=== PATIENT | male | born 1940 | race Caucasian/White ===

== ENCOUNTER 2019-05-05 06:16 | Day surgery (SDC) | payer MEDICARE, BC ==
[~2019-05-05 06:16] MED LIST: Lactated Ringers 1,000 ML IV SCH; Sodium Chloride 0.9% 10 ML Syringe FLUSH PRN; ceFAZolin 1 GM Vial IVPUSH SCH; ceFAZolin 1 GM in Sodium Chloride 0.9% 100 ML IV SCH
[2019-05-05] MEDS ORDERED: Acetaminophen 1,000 MG in Premix Bag 1 BAG IV ONE (07:27)
[2019-05-05] MEDS ORDERED: Bupivacaine 0.25%/EPINEPHrine 1:200,000 30 ML SDV ONE (07:36)
[2019-05-05] MEDS ORDERED: Ketamine 200 MG/20 ML MDV ONE (07:53)
[2019-05-05] MEDS ORDERED: fentaNYL 100 MCG/2 ML SDV ONE (07:53)
[2019-05-05] MEDS ORDERED: Propofol 200 MG/20 ML SDV ONE (07:53)
[2019-05-05] MEDS ORDERED: ceFAZolin 1 GM Vial ONE (08:05)
[2019-05-05] MEDS ORDERED: Ketorolac 30 MG/ML SDV ONE (08:09)
[2019-05-05] MEDS ORDERED: Bupivacaine 0.25%/EPINEPHrine 1:200,000 30 ML SDV INJECT ONE ×2 (08:11)
--- NOTE | 2019-05-05 09:48 | OR ---
PREOPERATIVE DIAGNOSIS: Recurrent left inguinal hernia. POSTOPERATIVE DIAGNOSIS: Recurrent direct left inguinal hernia. PROCEDURE PROPOSED AND PROCEDURE DONE: Left direct inguinal hernia repair with mesh. PROMOTIONS ASSISTANT: Brunilda. INDICATION: This is an elderly gentleman with a history of previous bilateral inguinal hernia repairs quite a few years ago, and he has developed a recurrence on the left side that is quite symptomatic to him and it is felt that this should be repaired. It was felt that this could be safely done under MAC anesthesia with local anesthesia. TECHNIQUE: The patient was brought to the operative suite, placed in the supine position. He had been previously trimmed. He was given some MAC anesthesia with propofol. The left groin area was then sterilely prepped and draped, and the skin and subcutaneous tissue was then localized with 0.25% Marcaine with epinephrine. An oblique incision was made above his previous scar to avoid going through a lot of scar tissue. This dissection was carried down through the subcutaneous tissue to the external oblique fascia. More anesthesia was used as needed throughout the operation. The external oblique fascia was opened. The cord was laying there, and I freed that up and passed a Boyd drain around that for traction. The patient had an obvious direct inguinal hernia through the inguinal floor and appeared to be predominantly a preperitoneal fat. There was no evidence of any bowel in the herniated tissue, which was incarcerated. I freed up the tissue circumferentially at the level of the fascia. I was unable to get the tissue reduced. He had a fascial defect that was only about 1.2 cm in size circumferentially. I placed a medium size plug of mesh into the defect and anchored it circumferentially with interrupted 0 Ethibond suture. To avoid having to dissect through other scar tissue, just to place a flat piece of mesh, I felt that at his age he was not very active, that we do not need to put a flat piece of mesh in. Therefore, placed the cord back in its normal position and the external oblique fascia was closed over the cord with a running 3-0 Vicryl. The subcutaneous tissue was then reapproximated with interrupted 3-0 Vicryl and the skin closed with a subcuticular stitch of 4- 0 Vicryl. A sterile dressing was applied. There was essentially no blood loss. He tolerated the procedure well and was taken back to [facility] in good condition. SCM: 05/05/2019 08:47:00 MODL: 05/05/2019 09:17:57 /[id number]
[2019-05-05 11:07] VITALS: BP 99/62; PULSE 77
== END 2019-05-05 11:42 | disposition home or self-care (01) ==
LOC: VM.SDS 06:16
PROVIDERS: ATTEND Surgery
DX: K40.91 Unilateral inguinal hernia, without obstruction or gangrene, recurrent (principal); I25.10 Atherosclerotic heart disease of native coronary artery without angina pectoris; I25.83 Coronary atherosclerosis due to lipid rich plaque; I11.0 Hypertensive heart disease with heart failure; I50.32 Chronic diastolic (congestive) heart failure; I48.1 Persistent atrial fibrillation; I25.5 Ischemic cardiomyopathy; I73.9 Peripheral vascular disease, unspecified; E78.00 Pure hypercholesterolemia, unspecified; K21.9 Gastro-esophageal reflux disease without esophagitis; Z91.19 Patient's noncompliance with other medical treatment and regimen; Z87.891 Personal history of nicotine dependence; Z79.01 Long term (current) use of anticoagulants; Z79.52 Long term (current) use of systemic steroids; Z79.82 Long term (current) use of aspirin; Z79.899 Other long term (current) drug therapy
CPT/HCPCS: 00830; 36415; 49520; 85610; A4217; C1781; J0131; J0690; J2704; J3010; J7120; J1885

== ENCOUNTER 2022-03-31 04:00 | Emergency (ER) | payer MEDICARE, BC ==
[2022-03-31 04:26] VITALS: PULSE 110
[2022-03-31 05:40] VITALS: BP 138/94
== END 2022-03-31 05:24 | disposition home or self-care (01) ==
LOC: VM.ED 04:00
DX: R33.9 Retention of urine, unspecified (principal); I25.10 Atherosclerotic heart disease of native coronary artery without angina pectoris; K21.9 Gastro-esophageal reflux disease without esophagitis; Z79.899 Other long term (current) drug therapy
CPT/HCPCS: 51702; 99283-25; 99284

== ENCOUNTER 2022-04-03 12:09 | Emergency (ER) | payer MEDICARE, BC ==
[2022-04-03 13:26] LABS: PTT,PARTIAL THROMBOPLSTIN TIME 31.2 SEC (20.5-30.9)
[2022-04-03 13:29] LABS: CHLORIDE,CL 103 mmol/L (98-107); SODIUM,NA 137 mmol/L (136-145)
[2022-04-03 14:00] LABS: ANION GAP 12.2 mmol/L (5-15); ESTIMATED GFR 85 mL/min (>=60)
[2022-04-03 14:58] VITALS: BP 93/47; PULSE 61
== END 2022-04-03 14:05 | disposition home or self-care (01) ==
LOC: VM.ED 12:09
DX: R33.9 Retention of urine, unspecified (principal); J44.9 Chronic obstructive pulmonary disease, unspecified; I11.0 Hypertensive heart disease with heart failure; I50.9 Heart failure, unspecified; I25.2 Old myocardial infarction; Z79.01 Long term (current) use of anticoagulants; Z79.82 Long term (current) use of aspirin; Z79.899 Other long term (current) drug therapy
CPT/HCPCS: 36415; 51702; 80053; 81001; 85025; 85610; 85730; 99283-25; 99284

== ENCOUNTER 2022-08-24 15:10 | Inpatient (IN) | payer MEDICARE, BC ==
[2022-08-24] MEDS ORDERED: HYDROmorphone 0.5 MG/0.5 ML Syringe IVPUSH ONE (18:05)
[2022-08-24] MEDS ORDERED: Acetaminophen 325 MG Tab PO PRN (18:21)
[2022-08-24] MEDS ORDERED: Ondansetron 4 MG Tab.DIS PO PRN (18:21)
[2022-08-24] MEDS ORDERED: Ondansetron 4 MG/2 ML SDV IV PRN (18:21)
[2022-08-24] MEDS: HYDROmorphone 0.5 MG/0.5 ML Syringe IVPUSH PRN (20:00)
[2022-08-25] MEDS: HYDROmorphone 0.5 MG/0.5 ML Syringe IVPUSH PRN ×5 (03:11→17:50)
[2022-08-25] MEDS ORDERED: Nitroglycerin 0.4 MG Tab.SL SL PRN (10:18)
[2022-08-25] MEDS ORDERED: Phytonadione 100 MCG Tab PO SCH (10:30)
[2022-08-25] MEDS: Carvedilol 12.5 MG Tab PO SCH ×2 (11:27→17:01)
[2022-08-25] MEDS: Finasteride 5 MG Tab PO SCH (11:28)
[2022-08-25] MEDS: Lisinopril 2.5 MG Tab PO SCH (11:28)
[2022-08-25] MEDS: Aspirin 81 MG Tab.EC PO SCH (11:30)
[2022-08-25] MEDS: Digoxin 125 MCG Tab PO SCH (11:30)
[2022-08-25 11:44] LABS: ANION GAP 10.1 mmol/L (5-15)
[2022-08-25] MEDS: Tamsulosin 0.4 MG Cap.ER PO SCH (16:55)
[2022-08-25] MEDS: Azithromycin 250 MG Tab PO SCH (17:51)
[2022-08-25] MEDS: cefTRIAXone 1 GM Vial IVPUSH SCH (17:52)
[2022-08-25] MEDS: atorvaSTATin 40 MG Tab PO SCH (20:23)
[2022-08-25] MEDS: HYDROmorphone 0.5 MG/0.5 ML Syringe IVPUSH SCH (20:25)
[2022-08-25] MEDS ORDERED: Warfarin 2.5 MG Tab PO ONE (21:00)
[2022-08-26] MEDS: Acetaminophen/HYDROcodone 325-5 MG Tab PO PRN ×3 (06:31→23:52)
[2022-08-26] MEDS: Carvedilol 12.5 MG Tab PO SCH ×2 (08:30→18:03)
[2022-08-26] MEDS: Lisinopril 2.5 MG Tab PO SCH (08:30)
[2022-08-26] MEDS: Azithromycin 250 MG Tab PO SCH (08:50)
[2022-08-26] MEDS: Digoxin 125 MCG Tab PO SCH (08:50)
[2022-08-26] MEDS: Finasteride 5 MG Tab PO SCH (08:51)
[2022-08-26] MEDS: Tamsulosin 0.4 MG Cap.ER PO SCH (08:51)
[2022-08-26] MEDS: Aspirin 81 MG Tab.EC PO SCH (08:51)
[2022-08-26] MEDS: HYDROmorphone 0.5 MG/0.5 ML Syringe IVPUSH SCH ×2 (08:57→20:01)
[2022-08-26] MEDS: cefTRIAXone 1 GM Vial IVPUSH SCH (08:59)
[2022-08-26] MEDS ORDERED: Magnesium Hydroxide 400 MG/5 ML Susp 30 ML Cup PO PRN (09:04)
[2022-08-26] MEDS: atorvaSTATin 40 MG Tab PO SCH (20:02)
[2022-08-26] MEDS: Warfarin 5 MG Tab PO SCH (20:02)
[2022-08-27] MEDS: Acetaminophen/HYDROcodone 325-5 MG Tab PO PRN ×3 (06:15→20:04)
[2022-08-27] MEDS ORDERED: Enoxaparin 40 MG/0.4 ML Syringe SUBCUT SCH (09:00)
[2022-08-27] MEDS: cefTRIAXone 1 GM Vial IVPUSH SCH (10:37)
[2022-08-27] MEDS: Tamsulosin 0.4 MG Cap.ER PO SCH ×2 (10:42→20:03)
[2022-08-27] MEDS: Azithromycin 250 MG Tab PO SCH (10:42)
[2022-08-27] MEDS: Digoxin 125 MCG Tab PO SCH (10:43)
[2022-08-27] MEDS: Lisinopril 2.5 MG Tab PO SCH (10:44)
[2022-08-27] MEDS: Aspirin 81 MG Tab.EC PO SCH (10:47)
[2022-08-27] MEDS: Finasteride 5 MG Tab PO SCH (10:47)
[2022-08-27] MEDS: Carvedilol 12.5 MG Tab PO SCH ×2 (10:47→20:03)
[2022-08-27] MEDS ORDERED: Albuterol/Ipratropium 3.0-0.5 MG/3 ML Neb Soln NEB PRN (13:50)
[2022-08-27] MEDS: Warfarin 5 MG Tab PO SCH (20:03)
[2022-08-27] MEDS: atorvaSTATin 40 MG Tab PO SCH (20:04)
[2022-08-28 07:31] LABS: ANION GAP 11.1 mmol/L (5-15)
[2022-08-28 08:49] VITALS: BP 109/58; PULSE 100
[2022-08-28] MEDS: Digoxin 125 MCG Tab PO SCH (08:54)
[2022-08-28] MEDS: Lisinopril 2.5 MG Tab PO SCH (08:54)
[2022-08-28] MEDS: Aspirin 81 MG Tab.EC PO SCH (08:54)
[2022-08-28] MEDS: Carvedilol 12.5 MG Tab PO SCH (08:55)
[2022-08-28] MEDS: Finasteride 5 MG Tab PO SCH (08:55)
[2022-08-28] MEDS: Tamsulosin 0.4 MG Cap.ER PO SCH (08:55)
[2022-08-28] MEDS: Azithromycin 250 MG Tab PO SCH (08:55)
[2022-08-28] MEDS ORDERED: Amoxicillin/Clavulanate K 875-125 MG Tab PO SCH (09:00)
[2022-08-28] MEDS ORDERED: Nicotine 14 MG/24 Hr Patch TRDERM SCH (13:00)
[2022-08-28] MEDS: Acetaminophen/HYDROcodone 325-5 MG Tab PO PRN (13:05)
[2022-08-28] MEDS ORDERED: Warfarin 2.5 MG Tab PO ONE (21:00)
== END 2022-08-28 13:15 | disposition swing bed (61) | DRG 535 ==
LOC: VM.ED 15:10 → VM.MS 17:43 → OBSVTOIN 08-25 13:09
PROVIDERS: ADMIT Physician Assistant Medical; ATTEND Internal Medicine
DX: S32.592A Other specified fracture of left pubis, initial encounter for closed fracture (principal); J18.9 Pneumonia, unspecified organism; J96.01 Acute respiratory failure with hypoxia; I48.0 Paroxysmal atrial fibrillation; C34.90 Malignant neoplasm of unspecified part of unspecified bronchus or lung; E87.1 Hypo-osmolality and hyponatremia; C34.91 Malignant neoplasm of unspecified part of right bronchus or lung; I48.20 Chronic atrial fibrillation, unspecified; I50.42 Chronic combined systolic (congestive) and diastolic (congestive) heart failure; I48.19 Other persistent atrial fibrillation; N40.1 Benign prostatic hyperplasia with lower urinary tract symptoms; R33.8 Other retention of urine; K59.03 Drug induced constipation; T40.2X5A Adverse effect of other opioids, initial encounter; F17.210 Nicotine dependence, cigarettes, uncomplicated; I50.22 Chronic systolic (congestive) heart failure; R33.9 Retention of urine, unspecified; K21.9 Gastro-esophageal reflux disease without esophagitis; I11.0 Hypertensive heart disease with heart failure; E78.00 Pure hypercholesterolemia, unspecified; J43.1 Panlobular emphysema; E78.5 Hyperlipidemia, unspecified; I25.10 Atherosclerotic heart disease of native coronary artery without angina pectoris; Z79.82 Long term (current) use of aspirin; Z79.899 Other long term (current) drug therapy; I25.2 Old myocardial infarction; Z79.01 Long term (current) use of anticoagulants; W01.0XXA Fall on same level from slipping, tripping and stumbling without subsequent striking against object, initial encounter
CPT/HCPCS: 36415; 51798; 71045; 72170; 80048; 80053; 81001; 85025; 85610; 86140; 87086; 94760; 95851-GO; 96374; 96376; 97110-GP; 97161-GP; 97165-GO; 97530-GO; 97530-GP; 97535-GO; 99285-25; A9270-GY; G0378; J0696; J1170; J1650

== ENCOUNTER 2022-08-28 10:47 | Inpatient (IN) | payer MEDICARE, BC ==
[2022-08-28] MEDS ORDERED: Nitroglycerin 0.4 MG Tab.SL SL PRN (12:21)
[2022-08-28] MEDS ORDERED: Ondansetron 4 MG Tab.DIS PO PRN (12:21)
[2022-08-28] MEDS ORDERED: Albuterol/Ipratropium 3.0-0.5 MG/3 ML Neb Soln NEB PRN (12:21)
[2022-08-28] MEDS ORDERED: Magnesium Hydroxide 400 MG/5 ML Susp 30 ML Cup PO PRN (12:21)
[2022-08-28] MEDS: Carvedilol 12.5 MG Tab PO SCH (18:42)
[2022-08-28] MEDS: Acetaminophen/HYDROcodone 325-5 MG Tab PO PRN (18:43)
[2022-08-28] MEDS: Tamsulosin 0.4 MG Cap.ER PO SCH (20:00)
[2022-08-28] MEDS: Amoxicillin/Clavulanate K 875-125 MG Tab PO SCH (20:00)
[2022-08-28] MEDS ORDERED: Warfarin 2.5 MG Tab PO ONE (20:00)
[2022-08-28] MEDS: atorvaSTATin 40 MG Tab PO SCH (20:00)
[2022-08-28] MEDS: Acetaminophen 325 MG Tab PO PRN (20:01)
[2022-08-29] MEDS: Acetaminophen 325 MG Tab PO PRN (08:24)
[2022-08-29] MEDS: Lisinopril 2.5 MG Tab PO SCH (08:25)
[2022-08-29] MEDS: Carvedilol 12.5 MG Tab PO SCH ×2 (08:26→17:37)
[2022-08-29] MEDS: Aspirin 81 MG Tab.EC PO SCH (08:26)
[2022-08-29] MEDS: Tamsulosin 0.4 MG Cap.ER PO SCH ×2 (08:26→20:01)
[2022-08-29] MEDS: Amoxicillin/Clavulanate K 875-125 MG Tab PO SCH ×2 (08:26→20:01)
[2022-08-29] MEDS: Digoxin 125 MCG Tab PO SCH (08:26)
[2022-08-29] MEDS: Finasteride 5 MG Tab PO SCH (08:27)
[2022-08-29] MEDS ORDERED: Azithromycin 250 MG Tab PO SCH (09:00)
[2022-08-29] MEDS: Acetaminophen/HYDROcodone 325-5 MG Tab PO PRN ×2 (15:03→23:42)
[2022-08-29] MEDS: Warfarin 5 MG Tab PO SCH (20:01)
[2022-08-29] MEDS: atorvaSTATin 40 MG Tab PO SCH (20:01)
[2022-08-30] MEDS: Lisinopril 2.5 MG Tab PO SCH (10:00)
[2022-08-30] MEDS: Carvedilol 12.5 MG Tab PO SCH ×2 (10:01→18:05)
[2022-08-30] MEDS: Digoxin 125 MCG Tab PO SCH (10:01)
[2022-08-30] MEDS: Finasteride 5 MG Tab PO SCH (10:01)
[2022-08-30] MEDS: Aspirin 81 MG Tab.EC PO SCH (10:01)
[2022-08-30] MEDS: Tamsulosin 0.4 MG Cap.ER PO SCH ×2 (10:02→20:17)
[2022-08-30] MEDS: Acetaminophen/HYDROcodone 325-5 MG Tab PO PRN (11:47)
[2022-08-30] MEDS: Nicotine 14 MG/24 Hr Patch TRDERM SCH (13:50)
[2022-08-30] MEDS: Warfarin 5 MG Tab PO SCH (20:17)
[2022-08-30] MEDS: atorvaSTATin 40 MG Tab PO SCH (20:17)
[2022-08-31 07:08] LABS: ANION GAP 10.2 mmol/L (5-15)
[2022-08-31] MEDS: Tamsulosin 0.4 MG Cap.ER PO SCH ×2 (08:23→20:07)
[2022-08-31] MEDS: Lisinopril 2.5 MG Tab PO SCH (08:23)
[2022-08-31] MEDS: Aspirin 81 MG Tab.EC PO SCH (08:23)
[2022-08-31] MEDS: Finasteride 5 MG Tab PO SCH (08:23)
[2022-08-31] MEDS: Digoxin 125 MCG Tab PO SCH (08:23)
[2022-08-31] MEDS: Carvedilol 12.5 MG Tab PO SCH ×2 (08:23→17:52)
[2022-08-31] MEDS: Nicotine 14 MG/24 Hr Patch TRDERM SCH (08:24)
[2022-08-31] MEDS ORDERED: Carvedilol 12.5 MG Tab PO SCH (09:00)
[2022-08-31] MEDS ORDERED: Carvedilol 6.25 MG Tab PO ONE ×2 (09:15→11:45)
[2022-08-31] MEDS ORDERED: Warfarin 2.5 MG Tab PO SCH (20:00)
[2022-08-31] MEDS: atorvaSTATin 40 MG Tab PO SCH (20:06)
[2022-09-01] MEDS: Finasteride 5 MG Tab PO SCH (08:37)
[2022-09-01] MEDS: Lisinopril 2.5 MG Tab PO SCH (08:38)
[2022-09-01] MEDS: Carvedilol 12.5 MG Tab PO SCH ×2 (08:39→17:48)
[2022-09-01] MEDS: Aspirin 81 MG Tab.EC PO SCH (08:40)
[2022-09-01] MEDS: Nicotine 14 MG/24 Hr Patch TRDERM SCH (08:40)
[2022-09-01] MEDS: Tamsulosin 0.4 MG Cap.ER PO SCH ×2 (08:40→20:04)
[2022-09-01] MEDS: Digoxin 125 MCG Tab PO SCH (08:40)
[2022-09-01] MEDS: Acetaminophen/HYDROcodone 325-5 MG Tab PO PRN ×2 (15:21→23:14)
[2022-09-01] MEDS: atorvaSTATin 40 MG Tab PO SCH (20:04)
[2022-09-01] MEDS: Warfarin 5 MG Tab PO SCH (20:04)
[2022-09-01] MEDS: Warfarin 2.5 MG Tab PO SCH (20:09)
[2022-09-02] MEDS: Carvedilol 12.5 MG Tab PO SCH ×2 (09:38→17:55)
[2022-09-02] MEDS: Finasteride 5 MG Tab PO SCH (09:39)
[2022-09-02] MEDS: Aspirin 81 MG Tab.EC PO SCH (09:39)
[2022-09-02] MEDS: Lisinopril 2.5 MG Tab PO SCH (09:39)
[2022-09-02] MEDS: Digoxin 125 MCG Tab PO SCH (09:39)
[2022-09-02] MEDS: Tamsulosin 0.4 MG Cap.ER PO SCH ×2 (09:39→20:12)
[2022-09-02] MEDS: Nicotine 14 MG/24 Hr Patch TRDERM SCH (09:42)
[2022-09-02] MEDS: Acetaminophen/HYDROcodone 325-5 MG Tab PO PRN ×3 (09:44→20:11)
[2022-09-02] MEDS: Warfarin 5 MG Tab PO SCH (20:12)
[2022-09-02] MEDS: atorvaSTATin 40 MG Tab PO SCH (20:12)
[2022-09-03] MEDS: Finasteride 5 MG Tab PO SCH (08:35)
[2022-09-03] MEDS: Lisinopril 2.5 MG Tab PO SCH (08:35)
[2022-09-03] MEDS: Aspirin 81 MG Tab.EC PO SCH (08:35)
[2022-09-03] MEDS: Carvedilol 12.5 MG Tab PO SCH ×2 (08:35→18:33)
[2022-09-03] MEDS: Tamsulosin 0.4 MG Cap.ER PO SCH ×2 (08:35→20:49)
[2022-09-03] MEDS: Digoxin 125 MCG Tab PO SCH (08:35)
[2022-09-03] MEDS: Acetaminophen/HYDROcodone 325-5 MG Tab PO PRN ×2 (08:36→18:30)
[2022-09-03] MEDS: Nicotine 14 MG/24 Hr Patch TRDERM SCH (08:38)
[2022-09-03] MEDS: atorvaSTATin 40 MG Tab PO SCH (20:48)
[2022-09-03] MEDS: Warfarin 5 MG Tab PO SCH (20:48)
[2022-09-04] MEDS: Nicotine 14 MG/24 Hr Patch TRDERM SCH (08:13)
[2022-09-04] MEDS: Aspirin 81 MG Tab.EC PO SCH (08:17)
[2022-09-04] MEDS: Lisinopril 2.5 MG Tab PO SCH (08:17)
[2022-09-04] MEDS: Digoxin 125 MCG Tab PO SCH (08:17)
[2022-09-04] MEDS: Carvedilol 12.5 MG Tab PO SCH ×2 (08:18→18:25)
[2022-09-04] MEDS: Tamsulosin 0.4 MG Cap.ER PO SCH ×2 (08:18→20:09)
[2022-09-04] MEDS: Finasteride 5 MG Tab PO SCH (08:18)
[2022-09-04] MEDS: Acetaminophen/HYDROcodone 325-5 MG Tab PO PRN (08:18)
[2022-09-04] MEDS: Phytonadione 100 MCG Tab PO SCH (08:30)
[2022-09-04] MEDS: Acetaminophen 325 MG Tab PO PRN (13:45)
[2022-09-04] MEDS: Warfarin 2.5 MG Tab PO SCH (20:09)
[2022-09-04] MEDS: atorvaSTATin 40 MG Tab PO SCH (20:09)
[2022-09-05] MEDS: Tamsulosin 0.4 MG Cap.ER PO SCH ×2 (08:30→20:16)
[2022-09-05] MEDS: Phytonadione 100 MCG Tab PO SCH (08:30)
[2022-09-05] MEDS: Finasteride 5 MG Tab PO SCH (08:30)
[2022-09-05] MEDS: Aspirin 81 MG Tab.EC PO SCH (08:30)
[2022-09-05] MEDS: Carvedilol 12.5 MG Tab PO SCH ×2 (08:31→17:20)
[2022-09-05] MEDS: Digoxin 125 MCG Tab PO SCH (08:31)
[2022-09-05] MEDS: Lisinopril 2.5 MG Tab PO SCH (08:31)
[2022-09-05] MEDS: Nicotine 14 MG/24 Hr Patch TRDERM SCH (08:31)
[2022-09-05] MEDS: Acetaminophen/HYDROcodone 325-5 MG Tab PO PRN (13:58)
[2022-09-05] MEDS: Warfarin 5 MG Tab PO SCH (20:15)
[2022-09-05] MEDS: atorvaSTATin 40 MG Tab PO SCH (20:16)
[2022-09-06] MEDS: Finasteride 5 MG Tab PO SCH (08:10)
[2022-09-06] MEDS: Carvedilol 12.5 MG Tab PO SCH ×2 (08:10→18:22)
[2022-09-06] MEDS: Phytonadione 100 MCG Tab PO SCH (08:10)
[2022-09-06] MEDS: Nicotine 14 MG/24 Hr Patch TRDERM SCH (08:10)
[2022-09-06] MEDS: Lisinopril 2.5 MG Tab PO SCH (08:11)
[2022-09-06] MEDS: Digoxin 125 MCG Tab PO SCH (08:11)
[2022-09-06] MEDS: Tamsulosin 0.4 MG Cap.ER PO SCH ×2 (08:11→20:24)
[2022-09-06] MEDS: Aspirin 81 MG Tab.EC PO SCH (08:11)
[2022-09-06] MEDS: Acetaminophen/HYDROcodone 325-5 MG Tab PO PRN ×2 (13:06→20:25)
[2022-09-06] MEDS: atorvaSTATin 40 MG Tab PO SCH (20:24)
[2022-09-06] MEDS: Warfarin 5 MG Tab PO SCH (20:25)
[2022-09-07 07:19] LABS: ANION GAP 11.1 mmol/L (5-15)
[2022-09-07] MEDS: Finasteride 5 MG Tab PO SCH (08:17)
[2022-09-07] MEDS: Phytonadione 100 MCG Tab PO SCH (08:17)
[2022-09-07] MEDS: Tamsulosin 0.4 MG Cap.ER PO SCH ×2 (08:18→20:20)
[2022-09-07] MEDS: Nicotine 14 MG/24 Hr Patch TRDERM SCH (08:18)
[2022-09-07] MEDS: Aspirin 81 MG Tab.EC PO SCH (08:18)
[2022-09-07] MEDS: Digoxin 125 MCG Tab PO SCH (08:56)
[2022-09-07] MEDS: Lisinopril 2.5 MG Tab PO SCH (08:56)
[2022-09-07] MEDS: Carvedilol 12.5 MG Tab PO SCH ×2 (08:57→18:19)
[2022-09-07] MEDS: Warfarin 5 MG Tab PO SCH (20:19)
[2022-09-07] MEDS: atorvaSTATin 40 MG Tab PO SCH (20:19)
[2022-09-07] MEDS: Acetaminophen 325 MG Tab PO PRN (20:25)
[2022-09-08] MEDS: Nicotine 14 MG/24 Hr Patch TRDERM SCH (08:29)
[2022-09-08] MEDS: Tamsulosin 0.4 MG Cap.ER PO SCH ×2 (08:29→21:34)
[2022-09-08] MEDS: Phytonadione 100 MCG Tab PO SCH (08:29)
[2022-09-08] MEDS: Aspirin 81 MG Tab.EC PO SCH (08:30)
[2022-09-08] MEDS: Lisinopril 2.5 MG Tab PO SCH (08:30)
[2022-09-08] MEDS: Finasteride 5 MG Tab PO SCH (08:30)
[2022-09-08] MEDS: Digoxin 125 MCG Tab PO SCH (08:30)
[2022-09-08] MEDS: Carvedilol 12.5 MG Tab PO SCH ×2 (08:30→17:59)
[2022-09-08] MEDS ORDERED: Warfarin 5 MG Tab PO SCH (20:00)
[2022-09-08] MEDS: Warfarin 5 MG Tab PO SCH (21:00)
[2022-09-08] MEDS: atorvaSTATin 40 MG Tab PO SCH (21:34)
[2022-09-09] MEDS: Lisinopril 2.5 MG Tab PO SCH (08:53)
[2022-09-09] MEDS: Digoxin 125 MCG Tab PO SCH (08:54)
[2022-09-09] MEDS: Phytonadione 100 MCG Tab PO SCH (08:54)
[2022-09-09] MEDS: Carvedilol 12.5 MG Tab PO SCH ×2 (08:54→17:59)
[2022-09-09] MEDS: Finasteride 5 MG Tab PO SCH (08:54)
[2022-09-09] MEDS: Aspirin 81 MG Tab.EC PO SCH (08:54)
[2022-09-09] MEDS: Tamsulosin 0.4 MG Cap.ER PO SCH ×2 (08:55→20:22)
[2022-09-09] MEDS: Nicotine 14 MG/24 Hr Patch TRDERM SCH (08:57)
[2022-09-09] MEDS: Acetaminophen 325 MG Tab PO PRN (18:03)
[2022-09-09] MEDS: atorvaSTATin 40 MG Tab PO SCH (20:22)
[2022-09-09] MEDS: Warfarin 5 MG Tab PO SCH (20:22)
[2022-09-10] MEDS: Acetaminophen 325 MG Tab PO PRN ×3 (03:16→21:22)
[2022-09-10] MEDS: Lisinopril 2.5 MG Tab PO SCH (10:07)
[2022-09-10] MEDS: Tamsulosin 0.4 MG Cap.ER PO SCH ×2 (10:07→20:01)
[2022-09-10] MEDS: Finasteride 5 MG Tab PO SCH (10:08)
[2022-09-10] MEDS: Carvedilol 12.5 MG Tab PO SCH ×2 (10:08→18:39)
[2022-09-10] MEDS: Phytonadione 100 MCG Tab PO SCH (10:08)
[2022-09-10] MEDS: Digoxin 125 MCG Tab PO SCH (10:08)
[2022-09-10] MEDS: Aspirin 81 MG Tab.EC PO SCH (10:08)
[2022-09-10] MEDS: Nicotine 14 MG/24 Hr Patch TRDERM SCH (10:09)
[2022-09-10] MEDS: atorvaSTATin 40 MG Tab PO SCH (20:01)
[2022-09-10] MEDS: Warfarin 5 MG Tab PO SCH (20:02)
[2022-09-11] MEDS: Aspirin 81 MG Tab.EC PO SCH (10:20)
[2022-09-11] MEDS: Carvedilol 12.5 MG Tab PO SCH ×2 (10:20→17:45)
[2022-09-11] MEDS: Digoxin 125 MCG Tab PO SCH (10:20)
[2022-09-11] MEDS: Tamsulosin 0.4 MG Cap.ER PO SCH ×2 (10:20→20:02)
[2022-09-11] MEDS: Phytonadione 100 MCG Tab PO SCH (10:20)
[2022-09-11] MEDS: Lisinopril 2.5 MG Tab PO SCH (10:21)
[2022-09-11] MEDS: Nicotine 14 MG/24 Hr Patch TRDERM SCH (10:21)
[2022-09-11] MEDS: Finasteride 5 MG Tab PO SCH (10:21)
[2022-09-11] MEDS: Warfarin 2.5 MG Tab PO SCH (20:02)
[2022-09-11] MEDS: atorvaSTATin 40 MG Tab PO SCH (20:02)
[2022-09-12] MEDS: Nicotine 14 MG/24 Hr Patch TRDERM SCH (10:24)
[2022-09-12] MEDS: Lisinopril 2.5 MG Tab PO SCH (10:28)
[2022-09-12] MEDS: Digoxin 125 MCG Tab PO SCH (10:28)
[2022-09-12] MEDS: Finasteride 5 MG Tab PO SCH (10:28)
[2022-09-12] MEDS: Tamsulosin 0.4 MG Cap.ER PO SCH ×2 (10:29→20:15)
[2022-09-12] MEDS: Phytonadione 100 MCG Tab PO SCH (10:29)
[2022-09-12] MEDS: Aspirin 81 MG Tab.EC PO SCH (10:29)
[2022-09-12] MEDS: Carvedilol 12.5 MG Tab PO SCH ×2 (10:29→18:29)
[2022-09-12] MEDS: atorvaSTATin 40 MG Tab PO SCH (20:15)
[2022-09-12] MEDS: Warfarin 5 MG Tab PO SCH (20:15)
[2022-09-13] MEDS: Acetaminophen 325 MG Tab PO PRN ×2 (04:51→14:09)
[2022-09-13] MEDS: Lisinopril 2.5 MG Tab PO SCH (09:34)
[2022-09-13] MEDS: Nicotine 14 MG/24 Hr Patch TRDERM SCH (09:34)
[2022-09-13] MEDS: Phytonadione 100 MCG Tab PO SCH (09:35)
[2022-09-13] MEDS: Carvedilol 12.5 MG Tab PO SCH ×2 (09:35→18:45)
[2022-09-13] MEDS: Finasteride 5 MG Tab PO SCH (09:35)
[2022-09-13] MEDS: Tamsulosin 0.4 MG Cap.ER PO SCH ×2 (09:35→20:35)
[2022-09-13] MEDS: Digoxin 125 MCG Tab PO SCH (09:35)
[2022-09-13] MEDS: Aspirin 81 MG Tab.EC PO SCH (09:35)
[2022-09-13] MEDS: Warfarin 5 MG Tab PO SCH (20:34)
[2022-09-13] MEDS: atorvaSTATin 40 MG Tab PO SCH (20:35)
[2022-09-14] MEDS: Acetaminophen 325 MG Tab PO PRN ×2 (01:13→22:08)
[2022-09-14 06:54] LABS: ANION GAP 8.9 mmol/L (5-15)
[2022-09-14] MEDS: Finasteride 5 MG Tab PO SCH (08:39)
[2022-09-14] MEDS: Aspirin 81 MG Tab.EC PO SCH (08:39)
[2022-09-14] MEDS: Tamsulosin 0.4 MG Cap.ER PO SCH ×2 (08:40→20:33)
[2022-09-14] MEDS: Lisinopril 2.5 MG Tab PO SCH (08:40)
[2022-09-14] MEDS: Phytonadione 100 MCG Tab PO SCH (08:40)
[2022-09-14] MEDS: Digoxin 125 MCG Tab PO SCH (08:40)
[2022-09-14] MEDS: Carvedilol 12.5 MG Tab PO SCH ×2 (08:41→18:05)
[2022-09-14] MEDS: Nicotine 14 MG/24 Hr Patch TRDERM SCH (08:44)
[2022-09-14] MEDS: DULoxetine 20 MG Cap PO SCH (18:04)
[2022-09-14] MEDS: atorvaSTATin 40 MG Tab PO SCH (20:33)
[2022-09-14] MEDS: Warfarin 5 MG Tab PO SCH (20:33)
[2022-09-14] MEDS: LORazepam 0.5 MG Tab PO PRN (20:34)
[2022-09-15] MEDS: Digoxin 125 MCG Tab PO SCH (09:04)
[2022-09-15] MEDS: Aspirin 81 MG Tab.EC PO SCH (09:04)
[2022-09-15] MEDS: Carvedilol 12.5 MG Tab PO SCH ×2 (09:05→17:35)
[2022-09-15] MEDS: Finasteride 5 MG Tab PO SCH (09:05)
[2022-09-15] MEDS: Lisinopril 2.5 MG Tab PO SCH (09:05)
[2022-09-15] MEDS: Phytonadione 100 MCG Tab PO SCH (09:06)
[2022-09-15] MEDS: Nicotine 14 MG/24 Hr Patch TRDERM SCH (09:07)
[2022-09-15] MEDS: DULoxetine 20 MG Cap PO SCH (09:07)
[2022-09-15] MEDS: Tamsulosin 0.4 MG Cap.ER PO SCH ×2 (09:07→20:10)
[2022-09-15] MEDS: Acetaminophen 325 MG Tab PO PRN (15:45)
[2022-09-15] MEDS: Warfarin 5 MG Tab PO SCH (20:09)
[2022-09-15] MEDS: atorvaSTATin 40 MG Tab PO SCH (20:10)
[2022-09-16] MEDS: Phytonadione 100 MCG Tab PO SCH (09:12)
[2022-09-16] MEDS: Carvedilol 12.5 MG Tab PO SCH ×2 (09:12→18:56)
[2022-09-16] MEDS: Digoxin 125 MCG Tab PO SCH (09:13)
[2022-09-16] MEDS: DULoxetine 20 MG Cap PO SCH (09:13)
[2022-09-16] MEDS: Lisinopril 2.5 MG Tab PO SCH (09:14)
[2022-09-16] MEDS: Tamsulosin 0.4 MG Cap.ER PO SCH ×2 (09:14→21:01)
[2022-09-16] MEDS: Nicotine 14 MG/24 Hr Patch TRDERM SCH (09:14)
[2022-09-16] MEDS: Aspirin 81 MG Tab.EC PO SCH (09:14)
[2022-09-16] MEDS: Finasteride 5 MG Tab PO SCH (09:14)
[2022-09-16] MEDS: Warfarin 5 MG Tab PO SCH (21:02)
[2022-09-16] MEDS: atorvaSTATin 40 MG Tab PO SCH (21:02)
[2022-09-17] MEDS: Nicotine 14 MG/24 Hr Patch TRDERM SCH (08:49)
[2022-09-17] MEDS: DULoxetine 20 MG Cap PO SCH (08:50)
[2022-09-17] MEDS: Lisinopril 2.5 MG Tab PO SCH (08:51)
[2022-09-17] MEDS: Digoxin 125 MCG Tab PO SCH (08:52)
[2022-09-17] MEDS: Phytonadione 100 MCG Tab PO SCH (08:52)
[2022-09-17] MEDS: Carvedilol 12.5 MG Tab PO SCH ×2 (08:52→17:01)
[2022-09-17] MEDS: Finasteride 5 MG Tab PO SCH (08:52)
[2022-09-17] MEDS: Tamsulosin 0.4 MG Cap.ER PO SCH ×2 (08:52→20:20)
[2022-09-17] MEDS: Aspirin 81 MG Tab.EC PO SCH (08:52)
[2022-09-17] MEDS: Acetaminophen 325 MG Tab PO PRN (08:59)
[2022-09-17] MEDS: Warfarin 5 MG Tab PO SCH (20:19)
[2022-09-17] MEDS: Acetaminophen/HYDROcodone 325-5 MG Tab PO PRN (20:19)
[2022-09-17] MEDS: atorvaSTATin 40 MG Tab PO SCH (20:20)
[2022-09-18] MEDS: Nicotine 14 MG/24 Hr Patch TRDERM SCH (08:59)
[2022-09-18] MEDS: DULoxetine 20 MG Cap PO SCH (09:00)
[2022-09-18] MEDS: Acetaminophen 325 MG Tab PO PRN ×2 (09:02→20:14)
[2022-09-18] MEDS: Phytonadione 100 MCG Tab PO SCH (09:02)
[2022-09-18] MEDS: Lisinopril 2.5 MG Tab PO SCH (09:02)
[2022-09-18] MEDS: Digoxin 125 MCG Tab PO SCH (09:03)
[2022-09-18] MEDS: Finasteride 5 MG Tab PO SCH (09:03)
[2022-09-18] MEDS: Carvedilol 12.5 MG Tab PO SCH ×2 (09:03→18:04)
[2022-09-18] MEDS: LORazepam 0.5 MG Tab PO PRN ×2 (09:04→20:11)
[2022-09-18] MEDS: Aspirin 81 MG Tab.EC PO SCH (09:12)
[2022-09-18] MEDS: Tamsulosin 0.4 MG Cap.ER PO SCH ×2 (09:12→20:13)
[2022-09-18] MEDS: Warfarin 2.5 MG Tab PO SCH (20:15)
[2022-09-18] MEDS: atorvaSTATin 40 MG Tab PO SCH (20:15)
[2022-09-19] MEDS: LORazepam 0.5 MG Tab PO PRN (08:52)
[2022-09-19] MEDS: DULoxetine 20 MG Cap PO SCH (08:53)
[2022-09-19] MEDS: Digoxin 125 MCG Tab PO SCH (08:53)
[2022-09-19] MEDS: Phytonadione 100 MCG Tab PO SCH (08:54)
[2022-09-19] MEDS: Aspirin 81 MG Tab.EC PO SCH (08:54)
[2022-09-19] MEDS: Finasteride 5 MG Tab PO SCH (08:54)
[2022-09-19] MEDS: Tamsulosin 0.4 MG Cap.ER PO SCH ×2 (08:54→20:08)
[2022-09-19] MEDS: Lisinopril 2.5 MG Tab PO SCH (08:54)
[2022-09-19] MEDS: Nicotine 14 MG/24 Hr Patch TRDERM SCH (08:55)
[2022-09-19] MEDS: Carvedilol 12.5 MG Tab PO SCH ×2 (08:55→17:46)
[2022-09-19] MEDS: Acetaminophen 325 MG Tab PO PRN (16:15)
[2022-09-19] MEDS: Warfarin 5 MG Tab PO SCH (20:08)
[2022-09-19] MEDS: Acetaminophen/HYDROcodone 325-5 MG Tab PO PRN (20:08)
[2022-09-19] MEDS: atorvaSTATin 40 MG Tab PO SCH (20:09)
[2022-09-20] MEDS: Lisinopril 2.5 MG Tab PO SCH (08:44)
[2022-09-20] MEDS: Phytonadione 100 MCG Tab PO SCH (08:44)
[2022-09-20] MEDS: Nicotine 14 MG/24 Hr Patch TRDERM SCH (08:44)
[2022-09-20] MEDS: Tamsulosin 0.4 MG Cap.ER PO SCH ×2 (08:44→20:40)
[2022-09-20] MEDS: DULoxetine 20 MG Cap PO SCH (08:46)
[2022-09-20] MEDS: Aspirin 81 MG Tab.EC PO SCH (08:46)
[2022-09-20] MEDS: Finasteride 5 MG Tab PO SCH (08:46)
[2022-09-20] MEDS: Carvedilol 12.5 MG Tab PO SCH ×2 (08:46→17:45)
[2022-09-20] MEDS: Digoxin 125 MCG Tab PO SCH (08:46)
[2022-09-20] MEDS: LORazepam 0.5 MG Tab PO PRN ×2 (08:47→20:41)
[2022-09-20] MEDS: Warfarin 5 MG Tab PO SCH (20:40)
[2022-09-20] MEDS: atorvaSTATin 40 MG Tab PO SCH (20:41)
[2022-09-21] MEDS: Acetaminophen 325 MG Tab PO PRN ×2 (03:20→22:38)
[2022-09-21] MEDS: Nicotine 14 MG/24 Hr Patch TRDERM SCH (09:05)
[2022-09-21] MEDS: Lisinopril 2.5 MG Tab PO SCH (09:08)
[2022-09-21] MEDS: Phytonadione 100 MCG Tab PO SCH (09:08)
[2022-09-21] MEDS: Aspirin 81 MG Tab.EC PO SCH (09:08)
[2022-09-21] MEDS: DULoxetine 20 MG Cap PO SCH (09:09)
[2022-09-21] MEDS: Tamsulosin 0.4 MG Cap.ER PO SCH ×2 (09:09→20:30)
[2022-09-21] MEDS: Carvedilol 12.5 MG Tab PO SCH ×2 (09:09→18:27)
[2022-09-21] MEDS: Finasteride 5 MG Tab PO SCH (09:09)
[2022-09-21] MEDS: Digoxin 125 MCG Tab PO SCH (09:09)
[2022-09-21] MEDS: Warfarin 5 MG Tab PO SCH (20:30)
[2022-09-21] MEDS: atorvaSTATin 40 MG Tab PO SCH (20:30)
[2022-09-21] MEDS: Mirtazapine 15 MG Tab PO SCH (20:31)
[2022-09-21] MEDS: LORazepam 0.5 MG Tab PO PRN (22:38)
[2022-09-22] MEDS: Nicotine 14 MG/24 Hr Patch TRDERM SCH (08:43)
[2022-09-22] MEDS: Phytonadione 100 MCG Tab PO SCH (08:44)
[2022-09-22] MEDS: Tamsulosin 0.4 MG Cap.ER PO SCH ×2 (08:45→20:52)
[2022-09-22] MEDS: Aspirin 81 MG Tab.EC PO SCH (08:45)
[2022-09-22] MEDS: DULoxetine 20 MG Cap PO SCH (08:45)
[2022-09-22] MEDS: Lisinopril 2.5 MG Tab PO SCH (08:45)
[2022-09-22] MEDS: Carvedilol 12.5 MG Tab PO SCH ×2 (08:45→18:34)
[2022-09-22] MEDS: Finasteride 5 MG Tab PO SCH (08:46)
[2022-09-22] MEDS: Digoxin 125 MCG Tab PO SCH (08:46)
[2022-09-22] MEDS: Mirtazapine 15 MG Tab PO SCH (20:50)
[2022-09-22] MEDS: Warfarin 5 MG Tab PO SCH (20:51)
[2022-09-22] MEDS: atorvaSTATin 40 MG Tab PO SCH (20:52)
[2022-09-22] MEDS: LORazepam 0.5 MG Tab PO PRN (22:44)
[2022-09-22] MEDS: Acetaminophen 325 MG Tab PO PRN (22:45)
[2022-09-23] MEDS: Nicotine 14 MG/24 Hr Patch TRDERM SCH (09:10)
[2022-09-23] MEDS: Lisinopril 2.5 MG Tab PO SCH (09:12)
[2022-09-23] MEDS: Phytonadione 100 MCG Tab PO SCH (09:12)
[2022-09-23] MEDS: Aspirin 81 MG Tab.EC PO SCH (09:12)
[2022-09-23] MEDS: Tamsulosin 0.4 MG Cap.ER PO SCH ×2 (09:12→20:09)
[2022-09-23] MEDS: Finasteride 5 MG Tab PO SCH (09:12)
[2022-09-23] MEDS: Digoxin 125 MCG Tab PO SCH (09:13)
[2022-09-23] MEDS: DULoxetine 20 MG Cap PO SCH (09:13)
[2022-09-23] MEDS: Carvedilol 12.5 MG Tab PO SCH ×2 (09:13→18:06)
[2022-09-23] MEDS: LORazepam 0.5 MG Tab PO PRN ×2 (09:13→21:46)
[2022-09-23] MEDS: Warfarin 5 MG Tab PO SCH (20:08)
[2022-09-23] MEDS: Mirtazapine 15 MG Tab PO SCH (20:09)
[2022-09-23] MEDS: atorvaSTATin 40 MG Tab PO SCH (20:09)
[2022-09-23] MEDS: Acetaminophen 325 MG Tab PO PRN (21:45)
[2022-09-23] MEDS: Menthol 10%/Methyl Salicylate 15% 85 GM Tube TOP PRN (21:48)
[2022-09-24] MEDS: Finasteride 5 MG Tab PO SCH (09:11)
[2022-09-24] MEDS: Tamsulosin 0.4 MG Cap.ER PO SCH ×2 (09:11→20:35)
[2022-09-24] MEDS: DULoxetine 20 MG Cap PO SCH (09:11)
[2022-09-24] MEDS: Lisinopril 2.5 MG Tab PO SCH (09:12)
[2022-09-24] MEDS: Phytonadione 100 MCG Tab PO SCH (09:12)
[2022-09-24] MEDS: Aspirin 81 MG Tab.EC PO SCH (09:12)
[2022-09-24] MEDS: Carvedilol 12.5 MG Tab PO SCH ×2 (09:12→18:59)
[2022-09-24] MEDS: Digoxin 125 MCG Tab PO SCH (09:12)
[2022-09-24] MEDS: LORazepam 0.5 MG Tab PO PRN ×2 (09:13→22:09)
[2022-09-24] MEDS: Nicotine 14 MG/24 Hr Patch TRDERM SCH (09:13)
[2022-09-24] MEDS: Warfarin 5 MG Tab PO SCH (20:34)
[2022-09-24] MEDS: Mirtazapine 15 MG Tab PO SCH (20:35)
[2022-09-24] MEDS: atorvaSTATin 40 MG Tab PO SCH (20:35)
[2022-09-24] MEDS: Acetaminophen 325 MG Tab PO PRN (22:08)
[2022-09-24] MEDS: Menthol 10%/Methyl Salicylate 15% 85 GM Tube TOP PRN (22:10)
[2022-09-25] MEDS: Nicotine 14 MG/24 Hr Patch TRDERM SCH (08:24)
[2022-09-25] MEDS: Carvedilol 12.5 MG Tab PO SCH ×2 (08:25→18:27)
[2022-09-25] MEDS: Finasteride 5 MG Tab PO SCH (08:25)
[2022-09-25] MEDS: DULoxetine 20 MG Cap PO SCH (08:25)
[2022-09-25] MEDS: Tamsulosin 0.4 MG Cap.ER PO SCH ×2 (08:25→20:04)
[2022-09-25] MEDS: Lisinopril 2.5 MG Tab PO SCH (08:25)
[2022-09-25] MEDS: Digoxin 125 MCG Tab PO SCH (08:26)
[2022-09-25] MEDS: Phytonadione 100 MCG Tab PO SCH (08:26)
[2022-09-25] MEDS: Aspirin 81 MG Tab.EC PO SCH (08:26)
[2022-09-25] MEDS: Miconazole 2% Top Powder 45 GM Container TOP SCH ×2 (10:09→20:05)
[2022-09-25] MEDS: atorvaSTATin 40 MG Tab PO SCH (20:02)
[2022-09-25] MEDS: Menthol 10%/Methyl Salicylate 15% 85 GM Tube TOP PRN (20:02)
[2022-09-25] MEDS: Melatonin 3 MG Tab PO SCH (20:03)
[2022-09-25] MEDS: Mirtazapine 15 MG Tab PO SCH (20:04)
[2022-09-25] MEDS: Warfarin 2.5 MG Tab PO SCH (20:04)
[2022-09-26 08:26] LABS: ANION GAP 12.1 mmol/L (5-15)
[2022-09-26] MEDS: Nicotine 14 MG/24 Hr Patch TRDERM SCH (10:49)
[2022-09-26] MEDS: Digoxin 125 MCG Tab PO SCH (10:50)
[2022-09-26] MEDS: Lisinopril 2.5 MG Tab PO SCH (10:50)
[2022-09-26] MEDS: Carvedilol 12.5 MG Tab PO SCH ×2 (10:51→18:26)
[2022-09-26] MEDS: Tamsulosin 0.4 MG Cap.ER PO SCH ×2 (10:51→20:01)
[2022-09-26] MEDS: Finasteride 5 MG Tab PO SCH (10:51)
[2022-09-26] MEDS: Aspirin 81 MG Tab.EC PO SCH (10:51)
[2022-09-26] MEDS: Phytonadione 100 MCG Tab PO SCH (10:51)
[2022-09-26] MEDS: DULoxetine 20 MG Cap PO SCH (10:51)
[2022-09-26] MEDS: Miconazole 2% Top Powder 45 GM Container TOP SCH ×2 (10:51→20:02)
[2022-09-26] MEDS: atorvaSTATin 40 MG Tab PO SCH (20:01)
[2022-09-26] MEDS: Melatonin 3 MG Tab PO SCH (20:01)
[2022-09-26] MEDS: Warfarin 5 MG Tab PO SCH (20:01)
[2022-09-26] MEDS: Mirtazapine 15 MG Tab PO SCH (20:07)
[2022-09-27] MEDS: Miconazole 2% Top Powder 45 GM Container TOP SCH ×2 (08:56→20:20)
[2022-09-27] MEDS: Nicotine 14 MG/24 Hr Patch TRDERM SCH (08:56)
[2022-09-27] MEDS: Digoxin 125 MCG Tab PO SCH (08:57)
[2022-09-27] MEDS: DULoxetine 20 MG Cap PO SCH (08:57)
[2022-09-27] MEDS: Lisinopril 2.5 MG Tab PO SCH (08:57)
[2022-09-27] MEDS: Phytonadione 100 MCG Tab PO SCH (08:57)
[2022-09-27] MEDS: Carvedilol 12.5 MG Tab PO SCH ×2 (08:58→17:53)
[2022-09-27] MEDS: Tamsulosin 0.4 MG Cap.ER PO SCH ×2 (08:58→20:18)
[2022-09-27] MEDS: Aspirin 81 MG Tab.EC PO SCH (08:58)
[2022-09-27] MEDS: Finasteride 5 MG Tab PO SCH (08:58)
[2022-09-27] MEDS: Warfarin 5 MG Tab PO SCH (20:19)
[2022-09-27] MEDS: Melatonin 3 MG Tab PO SCH (20:19)
[2022-09-27] MEDS: atorvaSTATin 40 MG Tab PO SCH (20:20)
[2022-09-27] MEDS: Mirtazapine 15 MG Tab PO SCH (20:27)
[2022-09-28] MEDS: Tamsulosin 0.4 MG Cap.ER PO SCH ×2 (08:53→20:22)
[2022-09-28] MEDS: Finasteride 5 MG Tab PO SCH (08:53)
[2022-09-28] MEDS: Phytonadione 100 MCG Tab PO SCH (08:53)
[2022-09-28] MEDS: Carvedilol 12.5 MG Tab PO SCH ×2 (08:54→17:36)
[2022-09-28] MEDS: Digoxin 125 MCG Tab PO SCH (08:57)
[2022-09-28] MEDS: Lisinopril 2.5 MG Tab PO SCH (08:57)
[2022-09-28] MEDS: DULoxetine 20 MG Cap PO SCH (08:58)
[2022-09-28] MEDS: Aspirin 81 MG Tab.EC PO SCH (08:58)
[2022-09-28] MEDS: Nicotine 14 MG/24 Hr Patch TRDERM SCH (08:58)
[2022-09-28] MEDS: Miconazole 2% Top Powder 45 GM Container TOP SCH ×2 (09:00→20:23)
[2022-09-28] MEDS ORDERED: Warfarin 5 MG Tab PO SCH (20:00)
[2022-09-28] MEDS: Melatonin 3 MG Tab PO SCH (20:22)
[2022-09-28] MEDS: Mirtazapine 15 MG Tab PO SCH (20:22)
[2022-09-28] MEDS: atorvaSTATin 40 MG Tab PO SCH (20:22)
[2022-09-29] MEDS: Nicotine 14 MG/24 Hr Patch TRDERM SCH (09:02)
[2022-09-29] MEDS: Aspirin 81 MG Tab.EC PO SCH (09:03)
[2022-09-29] MEDS: Phytonadione 100 MCG Tab PO SCH (09:03)
[2022-09-29] MEDS: DULoxetine 20 MG Cap PO SCH (09:03)
[2022-09-29] MEDS: Tamsulosin 0.4 MG Cap.ER PO SCH ×2 (09:03→20:07)
[2022-09-29] MEDS: Finasteride 5 MG Tab PO SCH (09:03)
[2022-09-29] MEDS: Miconazole 2% Top Powder 45 GM Container TOP SCH ×2 (09:04→20:08)
[2022-09-29] MEDS: Lisinopril 2.5 MG Tab PO SCH (09:08)
[2022-09-29] MEDS: Digoxin 125 MCG Tab PO SCH (09:09)
[2022-09-29] MEDS: Carvedilol 12.5 MG Tab PO SCH ×2 (09:09→17:42)
[2022-09-29] MEDS: Melatonin 3 MG Tab PO SCH (20:06)
[2022-09-29] MEDS: atorvaSTATin 40 MG Tab PO SCH (20:07)
[2022-09-29] MEDS: Mirtazapine 15 MG Tab PO SCH (20:07)
[2022-09-29] MEDS: Acetaminophen 325 MG Tab PO PRN (20:08)
[2022-09-30] MEDS: Nicotine 14 MG/24 Hr Patch TRDERM SCH (08:53)
[2022-09-30] MEDS: Miconazole 2% Top Powder 45 GM Container TOP SCH ×2 (08:53→20:05)
[2022-09-30] MEDS: DULoxetine 20 MG Cap PO SCH (08:54)
[2022-09-30] MEDS: Digoxin 125 MCG Tab PO SCH (08:54)
[2022-09-30] MEDS: Carvedilol 12.5 MG Tab PO SCH ×2 (08:55→16:59)
[2022-09-30] MEDS: Phytonadione 100 MCG Tab PO SCH (08:55)
[2022-09-30] MEDS: Tamsulosin 0.4 MG Cap.ER PO SCH ×2 (08:55→20:03)
[2022-09-30] MEDS: Finasteride 5 MG Tab PO SCH (08:56)
[2022-09-30] MEDS: Aspirin 81 MG Tab.EC PO SCH (08:56)
[2022-09-30] MEDS: Lisinopril 2.5 MG Tab PO SCH (08:56)
[2022-09-30] MEDS: Acetaminophen 325 MG Tab PO PRN (14:23)
[2022-09-30] MEDS: Melatonin 3 MG Tab PO SCH (20:02)
[2022-09-30] MEDS: Mirtazapine 15 MG Tab PO SCH (20:04)
[2022-09-30] MEDS: Menthol 10%/Methyl Salicylate 15% 85 GM Tube TOP PRN (20:04)
[2022-09-30] MEDS: atorvaSTATin 40 MG Tab PO SCH (20:04)
[2022-10-01] MEDS: Nicotine 14 MG/24 Hr Patch TRDERM SCH (09:35)
[2022-10-01] MEDS: Digoxin 125 MCG Tab PO SCH (09:37)
[2022-10-01] MEDS: Carvedilol 12.5 MG Tab PO SCH ×2 (09:37→18:34)
[2022-10-01] MEDS: Aspirin 81 MG Tab.EC PO SCH (09:37)
[2022-10-01] MEDS: DULoxetine 20 MG Cap PO SCH (09:38)
[2022-10-01] MEDS: Finasteride 5 MG Tab PO SCH (09:38)
[2022-10-01] MEDS: Tamsulosin 0.4 MG Cap.ER PO SCH ×2 (09:38→20:51)
[2022-10-01] MEDS: Phytonadione 100 MCG Tab PO SCH (09:38)
[2022-10-01] MEDS: Lisinopril 2.5 MG Tab PO SCH (09:38)
[2022-10-01] MEDS: Miconazole 2% Top Powder 45 GM Container TOP SCH ×2 (09:42→20:50)
[2022-10-01] MEDS: Mirtazapine 15 MG Tab PO SCH (20:51)
[2022-10-01] MEDS: Melatonin 3 MG Tab PO SCH (20:51)
[2022-10-01] MEDS: atorvaSTATin 40 MG Tab PO SCH (20:52)
[2022-10-02 06:39] VITALS: BP 136/68
[2022-10-02] MEDS: Nicotine 14 MG/24 Hr Patch TRDERM SCH (08:02)
[2022-10-02] MEDS: Aspirin 81 MG Tab.EC PO SCH (08:04)
[2022-10-02] MEDS: Tamsulosin 0.4 MG Cap.ER PO SCH (08:04)
[2022-10-02] MEDS: Phytonadione 100 MCG Tab PO SCH (08:04)
[2022-10-02] MEDS: Carvedilol 12.5 MG Tab PO SCH (08:12)
[2022-10-02] MEDS: Digoxin 125 MCG Tab PO SCH (08:12)
[2022-10-02 08:13] VITALS: PULSE 86
[2022-10-02] MEDS: Finasteride 5 MG Tab PO SCH (08:13)
[2022-10-02] MEDS: Lisinopril 2.5 MG Tab PO SCH (08:13)
[2022-10-02] MEDS: Miconazole 2% Top Powder 45 GM Container TOP SCH (08:14)
[2022-10-02] MEDS: DULoxetine 20 MG Cap PO SCH (08:14)
== END 2022-10-02 11:15 | DRG 559 ==
LOC: VM.MS 13:16 → UNDOADMIN 13:38 → VM.MS 09-22 15:30
PROVIDERS: ADMIT Internal Medicine; ATTEND Internal Medicine
DX: S32.512D Fracture of superior rim of left pubis, subsequent encounter for fracture with routine healing (principal); J96.01 Acute respiratory failure with hypoxia; C34.91 Malignant neoplasm of unspecified part of right bronchus or lung; E46 Unspecified protein-calorie malnutrition; I50.22 Chronic systolic (congestive) heart failure; R04.2 Hemoptysis; N40.1 Benign prostatic hyperplasia with lower urinary tract symptoms; R33.8 Other retention of urine; J44.9 Chronic obstructive pulmonary disease, unspecified; G31.84 Mild cognitive impairment of uncertain or unknown etiology; F41.9 Anxiety disorder, unspecified; F32.A Depression, unspecified; F17.210 Nicotine dependence, cigarettes, uncomplicated; I25.10 Atherosclerotic heart disease of native coronary artery without angina pectoris; W10.9XXD Fall (on) (from) unspecified stairs and steps, subsequent encounter; D64.9 Anemia, unspecified; Z20.822 Contact with and (suspected) exposure to COVID-19; Z87.01 Personal history of pneumonia (recurrent); Z79.01 Long term (current) use of anticoagulants; I11.0 Hypertensive heart disease with heart failure; K59.00 Constipation, unspecified; I48.0 Paroxysmal atrial fibrillation
CPT/HCPCS: 36415; 51798; 71045; 80048; 85025; 85610; 94760; 95851-GO; 97110-GP; 97116-GP; 97530-GO; 97530-GP; 97535-GO; A9270-GY; U0002

== ENCOUNTER 2023-07-23 17:47 | Emergency (ER) | payer MEDICARE, BC ==
[2023-07-23] MEDS ORDERED: Sodium Chloride 0.9% 10 ML Syringe FLUSH PRN (17:53)
[2023-07-23] MEDS: HYDROmorphone 0.5 MG/0.5 ML Syringe IVPUSH ONE ×2 (18:04→19:53)
[2023-07-23 18:15] LABS: BASOPHILS PERCENT AUTO 0.1 % (0.2-1.2); EOSINOPHILS PERCENT AUTO 0.1 % (0.0-4.0); HEMATOCRIT 40.3 % (40.0-52.0); HEMOGLOBIN 13.5 g/dL (14.0-18.0); IMMATURE GRAN ABSOLUTE AUTO 0.03 x10^3/uL (0.00-0.07); LYMPHOCYTES ABSOLUTE AUTO 0.6 x10^3/uL (1.0-4.8); MEAN CORPUSCULAR HEMOGLOBIN 29.7 pg (26.0-32.0); MEAN CORPUSCULAR HGB CONC 33.5 g/dL (32.0-36.0); MEAN CORPUSCULAR VOLUME 88.8 fL (78.0-93.0); MONOCYTES ABSOLUTE AUTO 0.7 x10^3/uL (0.0-0.8); MONOCYTES PERCENT AUTO 4.8 % (2.0-11.0); NEUTROPHILS ABSOLUTE AUTO 12.6 x10^3/uL (1.8-7.7); NEUTROPHILS PERCENT AUTO 90.6 % (50.0-80.0); PLATELET COUNT,PLT 221 x10^3/uL (130-400); RED BLOOD CELL COUNT 4.54 x10^6/uL (4.5-6.0); WHITE BLOOD CELL COUNT,WBC 13.9 x10^3/uL (4.0-10.0)
[2023-07-23 18:28] LABS: LYMPHOCYTES PERCENT AUTO 4.2 % (25.0-50.0)
[2023-07-23 18:40] LABS: A/G RATIO 0.87; ALANINE AMINOTRANSFERASE,ALT 19 U/L (16-63); ALBUMIN 3.3 g/dL (3.4-5.0); ALKALINE PHOSPHATASE 164 U/L (46-116); ASPARTATE AMNIOTRANSFERASE,AST 24 U/L (15-37); BILIRUBIN TOTAL 1.1 mg/dL (0.2-1.0); BLOOD UREA NITROGEN,BUN 27 mg/dL (7-18); CALCIUM 8.7 mg/dL (8.5-10.1); CARBON DIOXIDE,CO2 25 mmol/L (21-32); CHLORIDE,CL 104 mmol/L (98-107); CREATINE KINASE,CK 60 U/L (39-308); CREATININE 0.9 mg/dL (0.70-1.30); GLUCOSE RANDOM 122 mg/dL (70-99); POTASSIUM,K 4.3 mmol/L (3.5-5.1); PROTEIN TOTAL,TP 7.1 g/dL (6.4-8.2); SODIUM,NA 140 mmol/L (136-145)
[2023-07-23 18:41] LABS: ANION GAP 15.3 mmol/L (5-15); ESTIMATED GFR 85 mL/min (>=60)
[2023-07-23 19:10] VITALS: BP 126/69; PULSE 80
[2023-07-23] MEDS ORDERED: Naloxone 0.4 MG/ML SDV IVPUSH PRN (19:50)
== END 2023-07-23 20:00 | disposition short-term general hospital (02) ==
LOC: VM.ED 17:47
DX: S72.011A Unspecified intracapsular fracture of right femur, initial encounter for closed fracture (principal); I48.91 Unspecified atrial fibrillation; I25.10 Atherosclerotic heart disease of native coronary artery without angina pectoris; I11.0 Hypertensive heart disease with heart failure; I50.30 Unspecified diastolic (congestive) heart failure; I25.2 Old myocardial infarction; E78.00 Pure hypercholesterolemia, unspecified; F17.200 Nicotine dependence, unspecified, uncomplicated; J43.1 Panlobular emphysema; Z79.01 Long term (current) use of anticoagulants; Z79.82 Long term (current) use of aspirin; Z79.899 Other long term (current) drug therapy; W19.XXXA Unspecified fall, initial encounter
CPT/HCPCS: 36415; 71045; 80053; 80162; 82550; 85025; 93005; 96374; 96376; 99283-25; J1170

== ENCOUNTER 2023-07-27 12:21 | Inpatient (IN) | payer MEDICARE, BC ==
[2023-07-27] MEDS: Omeprazole 20 MG Cap.CR PO SCH (15:36)
[2023-07-27] MEDS ORDERED: Nitroglycerin 0.4 MG Tab.SL SL PRN (16:21)
[2023-07-27] MEDS ORDERED: Menthol 10%/Methyl Salicylate 15% 85 GM Tube TOP PRN (16:21)
[2023-07-27] MEDS: Carvedilol 6.25 MG Tab PO SCH (17:25)
[2023-07-27] MEDS: Acetaminophen 325 MG Tab PO PRN (17:25)
[2023-07-27] MEDS: Tamsulosin 0.4 MG Cap.ER PO SCH (21:06)
[2023-07-27] MEDS: Mirtazapine 15 MG Tab PO SCH (21:06)
[2023-07-27] MEDS: Calcium Citrate/Vitamin D3 315 MG-250 Unit Tab PO SCH (21:06)
[2023-07-27] MEDS: atorvaSTATin 40 MG Tab PO SCH (21:06)
[2023-07-27] MEDS: Albuterol/Ipratropium 3.0-0.5 MG/3 ML Neb Soln NEB PRN (22:50)
[2023-07-28] MEDS: Albuterol/Ipratropium 3.0-0.5 MG/3 ML Neb Soln NEB PRN (02:50)
[2023-07-28 07:03] LABS: HEMATOCRIT 25.8 % (40.0-52.0); HEMOGLOBIN 8.7 g/dL (14.0-18.0); MEAN CORPUSCULAR HEMOGLOBIN 29.7 pg (26.0-32.0); MEAN CORPUSCULAR HGB CONC 33.7 g/dL (32.0-36.0); MEAN CORPUSCULAR VOLUME 88.1 fL (78.0-93.0); RED BLOOD CELL COUNT 2.93 x10^6/uL (4.5-6.0); WHITE BLOOD CELL COUNT,WBC 8.6 x10^3/uL (4.0-10.0)
[2023-07-28] MEDS: DULoxetine 20 MG Cap PO SCH (09:15)
[2023-07-28] MEDS: Aspirin 81 MG Tab.EC PO SCH (09:15)
[2023-07-28] MEDS: Lisinopril 2.5 MG Tab PO SCH (09:15)
[2023-07-28] MEDS: Calcium Citrate/Vitamin D3 315 MG-250 Unit Tab PO SCH ×2 (09:15→20:22)
[2023-07-28] MEDS: Tamsulosin 0.4 MG Cap.ER PO SCH ×2 (09:16→20:22)
[2023-07-28] MEDS: Cholecalciferol (Vitamin D3) 25 MCG Tab PO SCH (09:16)
[2023-07-28] MEDS: Omeprazole 20 MG Cap.CR PO SCH (09:16)
[2023-07-28] MEDS: Enoxaparin 40 MG/0.4 ML Syringe SUBCUT SCH (09:16)
[2023-07-28] MEDS: Digoxin 125 MCG Tab PO SCH (09:16)
[2023-07-28] MEDS: Carvedilol 6.25 MG Tab PO SCH ×2 (09:16→18:10)
[2023-07-28] MEDS: Mirtazapine 15 MG Tab PO SCH (20:23)
[2023-07-28] MEDS: traMADol 50 MG Tab PO PRN (20:23)
[2023-07-28] MEDS: atorvaSTATin 40 MG Tab PO SCH (20:24)
[2023-07-29] MEDS: Acetaminophen 325 MG Tab PO PRN (08:26)
[2023-07-29] MEDS: DULoxetine 20 MG Cap PO SCH (08:50)
[2023-07-29] MEDS: Digoxin 125 MCG Tab PO SCH (08:50)
[2023-07-29] MEDS: Tamsulosin 0.4 MG Cap.ER PO SCH ×2 (08:50→21:23)
[2023-07-29] MEDS: Aspirin 81 MG Tab.EC PO SCH (08:52)
[2023-07-29] MEDS: Cholecalciferol (Vitamin D3) 25 MCG Tab PO SCH (08:52)
[2023-07-29] MEDS: Omeprazole 20 MG Cap.CR PO SCH (08:52)
[2023-07-29] MEDS: Calcium Citrate/Vitamin D3 315 MG-250 Unit Tab PO SCH ×2 (08:52→21:23)
[2023-07-29] MEDS: Lisinopril 2.5 MG Tab PO SCH (08:53)
[2023-07-29] MEDS: Carvedilol 6.25 MG Tab PO SCH ×2 (08:54→18:02)
[2023-07-29] MEDS: Enoxaparin 40 MG/0.4 ML Syringe SUBCUT SCH (08:55)
[2023-07-29] MEDS ORDERED: Zolpidem 5 MG Tab PO ONE (21:06)
[2023-07-29] MEDS: atorvaSTATin 40 MG Tab PO SCH (21:23)
[2023-07-29] MEDS: Mirtazapine 15 MG Tab PO SCH (21:24)
[2023-07-30 06:46] LABS: BASOPHILS PERCENT AUTO 0.1 % (0.2-1.2); EOSINOPHILS ABSOLUTE AUTO 0.2 x10^3/uL (0.0-0.5); EOSINOPHILS PERCENT AUTO 2.4 % (0.0-4.0); HEMATOCRIT 24.9 % (40.0-52.0); HEMOGLOBIN 8.4 g/dL (14.0-18.0); IMMATURE GRAN ABSOLUTE AUTO 0.04 x10^3/uL (0.00-0.07); LYMPHOCYTES ABSOLUTE AUTO 1.2 x10^3/uL (1.0-4.8); LYMPHOCYTES PERCENT AUTO 16.9 % (25.0-50.0); MEAN CORPUSCULAR HEMOGLOBIN 29.9 pg (26.0-32.0); MEAN CORPUSCULAR HGB CONC 33.7 g/dL (32.0-36.0); MEAN CORPUSCULAR VOLUME 88.6 fL (78.0-93.0); MONOCYTES ABSOLUTE AUTO 0.6 x10^3/uL (0.0-0.8); MONOCYTES PERCENT AUTO 7.9 % (2.0-11.0); NEUTROPHILS ABSOLUTE AUTO 5.1 x10^3/uL (1.8-7.7); NEUTROPHILS PERCENT AUTO 72.1 % (50.0-80.0); PLATELET COUNT,PLT 203 x10^3/uL (130-400); RED BLOOD CELL COUNT 2.81 x10^6/uL (4.5-6.0); WHITE BLOOD CELL COUNT,WBC 7.1 x10^3/uL (4.0-10.0)
[2023-07-30] MEDS: Enoxaparin 40 MG/0.4 ML Syringe SUBCUT SCH (08:24)
[2023-07-30] MEDS: DULoxetine 20 MG Cap PO SCH (08:24)
[2023-07-30] MEDS: Omeprazole 20 MG Cap.CR PO SCH (08:25)
[2023-07-30] MEDS: Cholecalciferol (Vitamin D3) 25 MCG Tab PO SCH (08:25)
[2023-07-30] MEDS: Aspirin 81 MG Tab.EC PO SCH (08:25)
[2023-07-30] MEDS: Calcium Citrate/Vitamin D3 315 MG-250 Unit Tab PO SCH ×2 (08:25→21:16)
[2023-07-30] MEDS: Tamsulosin 0.4 MG Cap.ER PO SCH ×2 (08:25→21:16)
[2023-07-30] MEDS: Lisinopril 2.5 MG Tab PO SCH (08:26)
[2023-07-30] MEDS: Digoxin 125 MCG Tab PO SCH (08:26)
[2023-07-30] MEDS: Carvedilol 6.25 MG Tab PO SCH ×2 (08:32→17:14)
[2023-07-30] MEDS: atorvaSTATin 40 MG Tab PO SCH (21:16)
[2023-07-30] MEDS: Acetaminophen 325 MG Tab PO PRN (21:16)
[2023-07-30] MEDS: Mirtazapine 15 MG Tab PO SCH (21:16)
[2023-07-31 07:36] LABS: BASOPHILS PERCENT AUTO 0.3 % (0.2-1.2); EOSINOPHILS ABSOLUTE AUTO 0.3 x10^3/uL (0.0-0.5); EOSINOPHILS PERCENT AUTO 3.7 % (0.0-4.0); HEMATOCRIT 25.7 % (40.0-52.0); HEMOGLOBIN 8.7 g/dL (14.0-18.0); IMMATURE GRAN ABSOLUTE AUTO 0.06 x10^3/uL (0.00-0.07); LYMPHOCYTES ABSOLUTE AUTO 1.2 x10^3/uL (1.0-4.8); LYMPHOCYTES PERCENT AUTO 17.8 % (25.0-50.0); MEAN CORPUSCULAR HEMOGLOBIN 29.9 pg (26.0-32.0); MEAN CORPUSCULAR HGB CONC 33.9 g/dL (32.0-36.0); MEAN CORPUSCULAR VOLUME 88.3 fL (78.0-93.0); MONOCYTES ABSOLUTE AUTO 0.6 x10^3/uL (0.0-0.8); MONOCYTES PERCENT AUTO 8.7 % (2.0-11.0); NEUTROPHILS ABSOLUTE AUTO 4.6 x10^3/uL (1.8-7.7); NEUTROPHILS PERCENT AUTO 68.6 % (50.0-80.0); PLATELET COUNT,PLT 218 x10^3/uL (130-400); RED BLOOD CELL COUNT 2.91 x10^6/uL (4.5-6.0); WHITE BLOOD CELL COUNT,WBC 6.7 x10^3/uL (4.0-10.0)
[2023-07-31] MEDS: Omeprazole 20 MG Cap.CR PO SCH (08:25)
[2023-07-31] MEDS: Tamsulosin 0.4 MG Cap.ER PO SCH ×2 (08:26→21:25)
[2023-07-31] MEDS: Calcium Citrate/Vitamin D3 315 MG-250 Unit Tab PO SCH ×2 (08:26→21:25)
[2023-07-31] MEDS: Digoxin 125 MCG Tab PO SCH (08:26)
[2023-07-31] MEDS: DULoxetine 20 MG Cap PO SCH (08:27)
[2023-07-31] MEDS: Enoxaparin 40 MG/0.4 ML Syringe SUBCUT SCH (08:29)
[2023-07-31] MEDS: Cholecalciferol (Vitamin D3) 25 MCG Tab PO SCH (08:29)
[2023-07-31] MEDS: Aspirin 81 MG Tab.EC PO SCH (08:29)
[2023-07-31] MEDS: Carvedilol 6.25 MG Tab PO SCH ×2 (08:31→18:17)
[2023-07-31] MEDS: Lisinopril 2.5 MG Tab PO SCH (08:31)
[2023-07-31] MEDS: traMADol 50 MG Tab PO PRN (10:19)
[2023-07-31] MEDS: atorvaSTATin 40 MG Tab PO SCH (21:25)
[2023-07-31] MEDS: Acetaminophen 325 MG Tab PO PRN (21:25)
[2023-07-31] MEDS: Mirtazapine 15 MG Tab PO SCH (21:25)
[2023-08-01] MEDS: Carvedilol 6.25 MG Tab PO SCH ×2 (08:20→18:44)
[2023-08-01] MEDS: DULoxetine 20 MG Cap PO SCH (08:23)
[2023-08-01] MEDS: Omeprazole 20 MG Cap.CR PO SCH (08:24)
[2023-08-01] MEDS: Calcium Citrate/Vitamin D3 315 MG-250 Unit Tab PO SCH ×2 (08:24→20:30)
[2023-08-01] MEDS: Aspirin 81 MG Tab.EC PO SCH (08:24)
[2023-08-01] MEDS: Digoxin 125 MCG Tab PO SCH (08:24)
[2023-08-01] MEDS: Lisinopril 2.5 MG Tab PO SCH (08:24)
[2023-08-01] MEDS: Cholecalciferol (Vitamin D3) 25 MCG Tab PO SCH (08:24)
[2023-08-01] MEDS: Enoxaparin 40 MG/0.4 ML Syringe SUBCUT SCH (08:25)
[2023-08-01] MEDS: Tamsulosin 0.4 MG Cap.ER PO SCH ×2 (10:17→22:13)
[2023-08-01] MEDS: Acetaminophen 325 MG Tab PO PRN ×3 (10:19→20:31)
[2023-08-01] MEDS: atorvaSTATin 40 MG Tab PO SCH (20:30)
[2023-08-01] MEDS: Mirtazapine 15 MG Tab PO SCH (20:30)
[2023-08-02] MEDS: Lisinopril 2.5 MG Tab PO SCH (08:19)
[2023-08-02] MEDS: Calcium Citrate/Vitamin D3 315 MG-250 Unit Tab PO SCH ×2 (08:19→20:51)
[2023-08-02] MEDS: Carvedilol 6.25 MG Tab PO SCH ×2 (08:19→17:55)
[2023-08-02] MEDS: Cholecalciferol (Vitamin D3) 25 MCG Tab PO SCH (08:19)
[2023-08-02] MEDS: Aspirin 81 MG Tab.EC PO SCH (08:19)
[2023-08-02] MEDS: Omeprazole 20 MG Cap.CR PO SCH (08:20)
[2023-08-02] MEDS: Enoxaparin 40 MG/0.4 ML Syringe SUBCUT SCH (08:20)
[2023-08-02] MEDS: DULoxetine 20 MG Cap PO SCH (08:20)
[2023-08-02] MEDS: Digoxin 125 MCG Tab PO SCH (08:21)
[2023-08-02] MEDS: Tamsulosin 0.4 MG Cap.ER PO SCH ×2 (08:36→20:51)
[2023-08-02] MEDS: Acetaminophen 325 MG Tab PO PRN (20:51)
[2023-08-02] MEDS: Mirtazapine 15 MG Tab PO SCH (20:51)
[2023-08-02] MEDS: atorvaSTATin 40 MG Tab PO SCH (20:51)
[2023-08-03 06:41] LABS: BASOPHILS PERCENT AUTO 0.2 % (0.2-1.2); EOSINOPHILS ABSOLUTE AUTO 0.5 x10^3/uL (0.0-0.5); EOSINOPHILS PERCENT AUTO 5.3 % (0.0-4.0); HEMATOCRIT 27.9 % (40.0-52.0); HEMOGLOBIN 9.3 g/dL (14.0-18.0); IMMATURE GRAN ABSOLUTE AUTO 0.13 x10^3/uL (0.00-0.07); LYMPHOCYTES ABSOLUTE AUTO 1.7 x10^3/uL (1.0-4.8); LYMPHOCYTES PERCENT AUTO 18.2 % (25.0-50.0); MEAN CORPUSCULAR HEMOGLOBIN 29.6 pg (26.0-32.0); MEAN CORPUSCULAR HGB CONC 33.3 g/dL (32.0-36.0); MEAN CORPUSCULAR VOLUME 88.9 fL (78.0-93.0); MONOCYTES ABSOLUTE AUTO 0.7 x10^3/uL (0.0-0.8); MONOCYTES PERCENT AUTO 7.1 % (2.0-11.0); NEUTROPHILS ABSOLUTE AUTO 6.5 x10^3/uL (1.8-7.7); NEUTROPHILS PERCENT AUTO 67.8 % (50.0-80.0); PLATELET COUNT,PLT 297 x10^3/uL (130-400); RED BLOOD CELL COUNT 3.14 x10^6/uL (4.5-6.0); WHITE BLOOD CELL COUNT,WBC 9.6 x10^3/uL (4.0-10.0)
[2023-08-03 07:04] LABS: A/G RATIO 0.53; ALANINE AMINOTRANSFERASE,ALT 81 U/L (16-63); ALBUMIN 2.1 g/dL (3.4-5.0); ALKALINE PHOSPHATASE 95 U/L (46-116); ANION GAP 11.7 mmol/L (5-15); ASPARTATE AMNIOTRANSFERASE,AST 71 U/L (15-37); BILIRUBIN TOTAL 0.6 mg/dL (0.2-1.0); BLOOD UREA NITROGEN,BUN 18 mg/dL (7-18); CALCIUM 8.1 mg/dL (8.5-10.1); CARBON DIOXIDE,CO2 29 mmol/L (21-32); CHLORIDE,CL 103 mmol/L (98-107); CREATININE 0.7 mg/dL (0.70-1.30); ESTIMATED GFR 91 mL/min (>=60); GLUCOSE RANDOM 93 mg/dL (70-99); POTASSIUM,K 3.7 mmol/L (3.5-5.1); PROTEIN TOTAL,TP 6.1 g/dL (6.4-8.2); SODIUM,NA 140 mmol/L (136-145)
[2023-08-03] MEDS: Carvedilol 6.25 MG Tab PO SCH ×2 (08:38→18:25)
[2023-08-03] MEDS: DULoxetine 20 MG Cap PO SCH (08:38)
[2023-08-03] MEDS: Lisinopril 2.5 MG Tab PO SCH (08:39)
[2023-08-03] MEDS: Cholecalciferol (Vitamin D3) 25 MCG Tab PO SCH (08:39)
[2023-08-03] MEDS: Tamsulosin 0.4 MG Cap.ER PO SCH ×2 (08:39→20:40)
[2023-08-03] MEDS: Digoxin 125 MCG Tab PO SCH (08:39)
[2023-08-03] MEDS: Omeprazole 20 MG Cap.CR PO SCH (08:39)
[2023-08-03] MEDS: Enoxaparin 40 MG/0.4 ML Syringe SUBCUT SCH (08:39)
[2023-08-03] MEDS: Calcium Citrate/Vitamin D3 315 MG-250 Unit Tab PO SCH ×2 (08:39→20:40)
[2023-08-03] MEDS: Aspirin 81 MG Tab.EC PO SCH (08:39)
[2023-08-03] MEDS ORDERED: Polyethylene Glycol 3350 Powder 17 GM Packet PO PRN (20:23)
[2023-08-03] MEDS: Docusate Sodium 100 MG Cap PO PRN (20:39)
[2023-08-03] MEDS: Mirtazapine 15 MG Tab PO SCH (20:40)
[2023-08-03] MEDS: atorvaSTATin 40 MG Tab PO SCH (20:40)
[2023-08-03] MEDS: Acetaminophen 325 MG Tab PO PRN (20:41)
[2023-08-04] MEDS: traMADol 50 MG Tab PO PRN (06:33)
[2023-08-04] MEDS: Enoxaparin 40 MG/0.4 ML Syringe SUBCUT SCH (08:10)
[2023-08-04] MEDS: DULoxetine 20 MG Cap PO SCH (08:12)
[2023-08-04] MEDS: Tamsulosin 0.4 MG Cap.ER PO SCH ×2 (08:12→21:44)
[2023-08-04] MEDS: Calcium Citrate/Vitamin D3 315 MG-250 Unit Tab PO SCH ×2 (08:12→21:44)
[2023-08-04] MEDS: Cholecalciferol (Vitamin D3) 25 MCG Tab PO SCH (08:12)
[2023-08-04] MEDS: Docusate Sodium 100 MG Cap PO PRN (08:12)
[2023-08-04] MEDS: Aspirin 81 MG Tab.EC PO SCH (08:12)
[2023-08-04] MEDS: Digoxin 125 MCG Tab PO SCH (08:12)
[2023-08-04] MEDS: Carvedilol 6.25 MG Tab PO SCH ×2 (08:13→18:00)
[2023-08-04] MEDS: Lisinopril 2.5 MG Tab PO SCH (08:13)
[2023-08-04] MEDS: atorvaSTATin 40 MG Tab PO SCH (21:44)
[2023-08-04] MEDS: Mirtazapine 15 MG Tab PO SCH (21:44)
[2023-08-05] MEDS: DULoxetine 20 MG Cap PO SCH (09:17)
[2023-08-05] MEDS: Carvedilol 6.25 MG Tab PO SCH ×2 (09:17→17:45)
[2023-08-05] MEDS: Cholecalciferol (Vitamin D3) 25 MCG Tab PO SCH (09:18)
[2023-08-05] MEDS: Lisinopril 2.5 MG Tab PO SCH (09:19)
[2023-08-05] MEDS: Calcium Citrate/Vitamin D3 315 MG-250 Unit Tab PO SCH ×2 (09:19→21:44)
[2023-08-05] MEDS: Digoxin 125 MCG Tab PO SCH (09:19)
[2023-08-05] MEDS: Aspirin 81 MG Tab.EC PO SCH (09:20)
[2023-08-05] MEDS: Tamsulosin 0.4 MG Cap.ER PO SCH ×2 (09:20→21:44)
[2023-08-05] MEDS: Enoxaparin 40 MG/0.4 ML Syringe SUBCUT SCH (09:21)
[2023-08-05] MEDS: Mirtazapine 15 MG Tab PO SCH (21:44)
[2023-08-05] MEDS: atorvaSTATin 40 MG Tab PO SCH (21:44)
[2023-08-06] MEDS: traMADol 50 MG Tab PO PRN ×2 (03:10→20:17)
[2023-08-06 06:43] LABS: HEMOGLOBIN 9.8 g/dL (14.0-18.0); MEAN CORPUSCULAR HGB CONC 33.8 g/dL (32.0-36.0); MEAN CORPUSCULAR VOLUME 88.7 fL (78.0-93.0); RED BLOOD CELL COUNT 3.27 x10^6/uL (4.5-6.0); WHITE BLOOD CELL COUNT,WBC 9.6 x10^3/uL (4.0-10.0)
[2023-08-06 07:01] LABS: A/G RATIO 0.66; ALBUMIN 2.3 g/dL (3.4-5.0); BILIRUBIN DIRECT 0.22 mg/dL (0.00-0.20); BILIRUBIN INDIRECT 0.48; BILIRUBIN TOTAL 0.7 mg/dL (0.2-1.0); PROTEIN TOTAL,TP 5.8 g/dL (6.4-8.2)
[2023-08-06] MEDS: DULoxetine 20 MG Cap PO SCH (08:54)
[2023-08-06] MEDS: Aspirin 81 MG Tab.EC PO SCH (08:54)
[2023-08-06] MEDS: Tamsulosin 0.4 MG Cap.ER PO SCH ×2 (08:55→20:17)
[2023-08-06] MEDS: Calcium Citrate/Vitamin D3 315 MG-250 Unit Tab PO SCH ×2 (08:55→20:17)
[2023-08-06] MEDS: Digoxin 125 MCG Tab PO SCH (08:55)
[2023-08-06] MEDS: Carvedilol 6.25 MG Tab PO SCH ×2 (08:57→18:34)
[2023-08-06] MEDS: Lisinopril 2.5 MG Tab PO SCH (08:58)
[2023-08-06] MEDS: Cholecalciferol (Vitamin D3) 25 MCG Tab PO SCH (08:58)
[2023-08-06] MEDS: Enoxaparin 40 MG/0.4 ML Syringe SUBCUT SCH (08:59)
[2023-08-06] MEDS: Mirtazapine 15 MG Tab PO SCH (20:17)
[2023-08-06] MEDS: atorvaSTATin 40 MG Tab PO SCH (20:17)
[2023-08-07] MEDS: Carvedilol 6.25 MG Tab PO SCH ×2 (09:10→18:38)
[2023-08-07] MEDS: Tamsulosin 0.4 MG Cap.ER PO SCH ×2 (09:11→23:24)
[2023-08-07] MEDS: Lisinopril 2.5 MG Tab PO SCH (09:12)
[2023-08-07] MEDS: Aspirin 81 MG Tab.EC PO SCH (09:12)
[2023-08-07] MEDS: DULoxetine 20 MG Cap PO SCH (09:13)
[2023-08-07] MEDS: Calcium Citrate/Vitamin D3 315 MG-250 Unit Tab PO SCH ×2 (09:13→23:24)
[2023-08-07] MEDS: Digoxin 125 MCG Tab PO SCH (09:13)
[2023-08-07] MEDS: Cholecalciferol (Vitamin D3) 25 MCG Tab PO SCH (09:14)
[2023-08-07] MEDS: Enoxaparin 40 MG/0.4 ML Syringe SUBCUT SCH (09:14)
[2023-08-07] MEDS: traMADol 50 MG Tab PO PRN ×2 (14:27→23:25)
[2023-08-07] MEDS: Mirtazapine 15 MG Tab PO SCH (23:23)
[2023-08-07] MEDS: atorvaSTATin 40 MG Tab PO SCH (23:24)
[2023-08-08] MEDS: Tamsulosin 0.4 MG Cap.ER PO SCH ×2 (08:33→20:03)
[2023-08-08] MEDS: Aspirin 81 MG Tab.EC PO SCH (08:33)
[2023-08-08] MEDS: DULoxetine 20 MG Cap PO SCH (08:34)
[2023-08-08] MEDS: Cholecalciferol (Vitamin D3) 25 MCG Tab PO SCH (08:34)
[2023-08-08] MEDS: Carvedilol 6.25 MG Tab PO SCH ×2 (08:36→17:43)
[2023-08-08] MEDS: Lisinopril 2.5 MG Tab PO SCH (08:37)
[2023-08-08] MEDS: Calcium Citrate/Vitamin D3 315 MG-250 Unit Tab PO SCH ×2 (08:37→20:03)
[2023-08-08] MEDS: Acetaminophen 325 MG Tab PO PRN (08:39)
[2023-08-08] MEDS: Enoxaparin 40 MG/0.4 ML Syringe SUBCUT SCH (08:41)
[2023-08-08] MEDS: Digoxin 125 MCG Tab PO SCH (08:42)
[2023-08-08] MEDS: atorvaSTATin 40 MG Tab PO SCH (20:03)
[2023-08-08] MEDS: Mirtazapine 15 MG Tab PO SCH (20:03)
[2023-08-08] MEDS: traMADol 50 MG Tab PO PRN (22:51)
[2023-08-09] MEDS: Lisinopril 2.5 MG Tab PO SCH (09:27)
[2023-08-09] MEDS: Carvedilol 6.25 MG Tab PO SCH ×2 (09:28→17:26)
[2023-08-09] MEDS: DULoxetine 20 MG Cap PO SCH (09:29)
[2023-08-09] MEDS: Tamsulosin 0.4 MG Cap.ER PO SCH ×2 (09:29→21:16)
[2023-08-09] MEDS: Calcium Citrate/Vitamin D3 315 MG-250 Unit Tab PO SCH ×2 (09:29→21:16)
[2023-08-09] MEDS: Cholecalciferol (Vitamin D3) 25 MCG Tab PO SCH (09:29)
[2023-08-09] MEDS: Digoxin 125 MCG Tab PO SCH (09:30)
[2023-08-09] MEDS: Aspirin 81 MG Tab.EC PO SCH (09:30)
[2023-08-09] MEDS: Enoxaparin 40 MG/0.4 ML Syringe SUBCUT SCH (09:30)
[2023-08-09] MEDS: atorvaSTATin 40 MG Tab PO SCH (21:16)
[2023-08-09] MEDS: Mirtazapine 15 MG Tab PO SCH (22:46)
[2023-08-10 06:55] LABS: BASOPHILS PERCENT AUTO 0.3 % (0.2-1.2); EOSINOPHILS ABSOLUTE AUTO 0.5 x10^3/uL (0.0-0.5); EOSINOPHILS PERCENT AUTO 5.3 % (0.0-4.0); HEMATOCRIT 30.6 % (40.0-52.0); HEMOGLOBIN 10.2 g/dL (14.0-18.0); IMMATURE GRAN ABSOLUTE AUTO 0.06 x10^3/uL (0.00-0.07); LYMPHOCYTES ABSOLUTE AUTO 1.6 x10^3/uL (1.0-4.8); LYMPHOCYTES PERCENT AUTO 17.9 % (25.0-50.0); MEAN CORPUSCULAR HEMOGLOBIN 29.8 pg (26.0-32.0); MEAN CORPUSCULAR HGB CONC 33.3 g/dL (32.0-36.0); MEAN CORPUSCULAR VOLUME 89.5 fL (78.0-93.0); MONOCYTES ABSOLUTE AUTO 0.7 x10^3/uL (0.0-0.8); MONOCYTES PERCENT AUTO 7.5 % (2.0-11.0); NEUTROPHILS PERCENT AUTO 68.3 % (50.0-80.0); PLATELET COUNT,PLT 369 x10^3/uL (130-400); RED BLOOD CELL COUNT 3.42 x10^6/uL (4.5-6.0); WHITE BLOOD CELL COUNT,WBC 8.7 x10^3/uL (4.0-10.0)
[2023-08-10 07:18] LABS: A/G RATIO 0.63; ALBUMIN 2.4 g/dL (3.4-5.0); ANION GAP 11.1 mmol/L (5-15); BILIRUBIN TOTAL 0.8 mg/dL (0.2-1.0); CALCIUM 8.6 mg/dL (8.5-10.1); CREATININE 0.8 mg/dL (0.70-1.30); EST CRCL DRUG DOSING (CG) 48.75 mL/min; POTASSIUM,K 4.1 mmol/L (3.5-5.1); PROTEIN TOTAL,TP 6.2 g/dL (6.4-8.2)
[2023-08-10] MEDS: Carvedilol 6.25 MG Tab PO SCH ×2 (08:24→18:29)
[2023-08-10] MEDS: Digoxin 125 MCG Tab PO SCH (08:25)
[2023-08-10] MEDS: DULoxetine 20 MG Cap PO SCH (08:25)
[2023-08-10] MEDS: Calcium Citrate/Vitamin D3 315 MG-250 Unit Tab PO SCH ×2 (08:26→20:52)
[2023-08-10] MEDS: Lisinopril 2.5 MG Tab PO SCH (08:27)
[2023-08-10] MEDS: Tamsulosin 0.4 MG Cap.ER PO SCH ×2 (08:27→20:43)
[2023-08-10] MEDS: Aspirin 81 MG Tab.EC PO SCH (08:28)
[2023-08-10] MEDS: Cholecalciferol (Vitamin D3) 25 MCG Tab PO SCH (08:28)
[2023-08-10 13:03] LABS: CORONAVIRUS COVID-19 NAA NEGATIVE (NEGATIVE); INFLUENZA A NAA NEGATIVE (NEGATIVE); INFLUENZA B NAA NEGATIVE (NEGATIVE); RESPIRATORY SYNCYTIAL VIR NAA NEGATIVE (NEGATIVE)
[2023-08-10 13:36] LABS: APPEARANCE,URINE CLOUDY (CLEAR); BILIRUBIN,URINE NEGATIVE (NEGATIVE); COLOR,URINE DARK YELLOW (YELLOW); GLUCOSE,URINE NEGATIVE (NEGATIVE); KETONES,URINE NEGATIVE (NEGATIVE); LEUKOCYTE ESTERASE,URINE NEGATIVE (NEGATIVE); NITRITE,URINE NEGATIVE (NEGATIVE); OCCULT BLOOD,URINE MODERATE (NEGATIVE); PROTEIN,URINE 100 mg/dL (NEGATIVE)
[2023-08-10 13:46] LABS: BACTERIA,URINE NOT SEEN /HPF (NOT SEEN); MUCUS,URINE RARE /LPF (NOT SEEN); RBC,URINE >100 /HPF (NOT SEEN); SQUAMOUS EPITHELIAL CELLS,UR NOT SEEN /HPF (NOT SEEN); WBC,URINE 0-5 /HPF (NOT SEEN)
[2023-08-10] MEDS: predniSONE 20 MG Tab PO SCH (14:55)
[2023-08-10] MEDS: Albuterol/Ipratropium 3.0-0.5 MG/3 ML Neb Soln NEB SCH ×3 (14:55→22:27)
[2023-08-10] MEDS: Amoxicillin/Clavulanate K 875-125 MG Tab PO SCH ×2 (14:55→20:43)
[2023-08-10] MEDS: Acetaminophen 325 MG Tab PO PRN (20:42)
[2023-08-10] MEDS: Mirtazapine 15 MG Tab PO SCH (20:52)
[2023-08-10] MEDS: atorvaSTATin 40 MG Tab PO SCH (20:52)
[2023-08-11] MEDS: Albuterol/Ipratropium 3.0-0.5 MG/3 ML Neb Soln NEB SCH ×3 (08:11→23:02)
[2023-08-11] MEDS: Carvedilol 3.125 MG Tab PO SCH ×2 (08:12→18:00)
[2023-08-11] MEDS: Amoxicillin/Clavulanate K 875-125 MG Tab PO SCH ×2 (08:13→18:00)
[2023-08-11] MEDS: Aspirin 81 MG Tab.EC PO SCH (08:13)
[2023-08-11] MEDS: DULoxetine 20 MG Cap PO SCH (08:13)
[2023-08-11] MEDS: Tamsulosin 0.4 MG Cap.ER PO SCH ×2 (08:13→19:32)
[2023-08-11] MEDS: predniSONE 20 MG Tab PO SCH (08:13)
[2023-08-11] MEDS: Cholecalciferol (Vitamin D3) 25 MCG Tab PO SCH (08:14)
[2023-08-11] MEDS: Calcium Citrate/Vitamin D3 315 MG-250 Unit Tab PO SCH ×2 (08:14→19:31)
[2023-08-11] MEDS: Digoxin 125 MCG Tab PO SCH (08:14)
[2023-08-11] MEDS: Mirtazapine 15 MG Tab PO SCH (19:32)
[2023-08-12] MEDS: Digoxin 125 MCG Tab PO SCH (08:40)
[2023-08-12] MEDS: Calcium Citrate/Vitamin D3 315 MG-250 Unit Tab PO SCH ×3 (08:40→22:09)
[2023-08-12] MEDS: DULoxetine 20 MG Cap PO SCH (08:40)
[2023-08-12] MEDS: Tamsulosin 0.4 MG Cap.ER PO SCH ×3 (08:40→22:09)
[2023-08-12] MEDS: predniSONE 20 MG Tab PO SCH (08:42)
[2023-08-12] MEDS: Albuterol/Ipratropium 3.0-0.5 MG/3 ML Neb Soln NEB SCH ×3 (08:42→22:09)
[2023-08-12] MEDS: Carvedilol 3.125 MG Tab PO SCH ×2 (08:42→17:38)
[2023-08-12] MEDS: Cholecalciferol (Vitamin D3) 25 MCG Tab PO SCH (08:43)
[2023-08-12] MEDS: Aspirin 81 MG Tab.EC PO SCH (08:43)
[2023-08-12] MEDS: Amoxicillin/Clavulanate K 875-125 MG Tab PO SCH ×2 (08:43→17:36)
[2023-08-12] MEDS: Albuterol/Ipratropium 3.0-0.5 MG/3 ML Neb Soln NEB PRN (19:36)
[2023-08-12] MEDS: Mirtazapine 15 MG Tab PO SCH ×2 (19:36→22:09)
[2023-08-13] MEDS: Albuterol/Ipratropium 3.0-0.5 MG/3 ML Neb Soln NEB SCH ×3 (07:18→22:07)
[2023-08-13] MEDS: Amoxicillin/Clavulanate K 875-125 MG Tab PO SCH ×2 (08:02→17:47)
[2023-08-13] MEDS: Acetaminophen 325 MG Tab PO PRN ×2 (08:02→20:31)
[2023-08-13] MEDS: Carvedilol 3.125 MG Tab PO SCH ×2 (08:03→17:47)
[2023-08-13] MEDS: DULoxetine 20 MG Cap PO SCH (08:39)
[2023-08-13] MEDS: Cholecalciferol (Vitamin D3) 25 MCG Tab PO SCH (08:40)
[2023-08-13] MEDS: Digoxin 125 MCG Tab PO SCH (08:40)
[2023-08-13] MEDS: Calcium Citrate/Vitamin D3 315 MG-250 Unit Tab PO SCH ×2 (08:41→20:30)
[2023-08-13] MEDS: predniSONE 20 MG Tab PO SCH (08:41)
[2023-08-13] MEDS: Aspirin 81 MG Tab.EC PO SCH (08:41)
[2023-08-13] MEDS: Tamsulosin 0.4 MG Cap.ER PO SCH ×2 (08:41→20:30)
[2023-08-13] MEDS: Mirtazapine 15 MG Tab PO SCH (20:30)
[2023-08-14] MEDS: Albuterol/Ipratropium 3.0-0.5 MG/3 ML Neb Soln NEB SCH ×3 (07:07→20:41)
[2023-08-14] MEDS: Aspirin 81 MG Tab.EC PO SCH (08:57)
[2023-08-14] MEDS: Amoxicillin/Clavulanate K 875-125 MG Tab PO SCH ×2 (08:57→17:22)
[2023-08-14] MEDS: Calcium Citrate/Vitamin D3 315 MG-250 Unit Tab PO SCH ×2 (08:58→20:41)
[2023-08-14] MEDS: Digoxin 125 MCG Tab PO SCH (08:58)
[2023-08-14] MEDS: Tamsulosin 0.4 MG Cap.ER PO SCH ×2 (08:59→20:41)
[2023-08-14] MEDS: DULoxetine 20 MG Cap PO SCH (08:59)
[2023-08-14] MEDS: predniSONE 20 MG Tab PO SCH (09:00)
[2023-08-14] MEDS: Cholecalciferol (Vitamin D3) 25 MCG Tab PO SCH (09:00)
[2023-08-14] MEDS: Carvedilol 3.125 MG Tab PO SCH ×2 (09:00→17:22)
[2023-08-14] MEDS: Mirtazapine 15 MG Tab PO SCH (20:41)
[2023-08-14] MEDS: Acetaminophen 325 MG Tab PO PRN (20:44)
[2023-08-15] MEDS: Albuterol/Ipratropium 3.0-0.5 MG/3 ML Neb Soln NEB SCH ×3 (06:17→21:07)
[2023-08-15] MEDS: DULoxetine 20 MG Cap PO SCH (08:05)
[2023-08-15] MEDS: Tamsulosin 0.4 MG Cap.ER PO SCH ×2 (08:05→21:07)
[2023-08-15] MEDS: Aspirin 81 MG Tab.EC PO SCH (08:06)
[2023-08-15] MEDS: Calcium Citrate/Vitamin D3 315 MG-250 Unit Tab PO SCH ×2 (08:06→21:07)
[2023-08-15] MEDS: Digoxin 125 MCG Tab PO SCH (08:06)
[2023-08-15] MEDS: Carvedilol 3.125 MG Tab PO SCH ×2 (08:07→17:46)
[2023-08-15] MEDS: Cholecalciferol (Vitamin D3) 25 MCG Tab PO SCH (08:08)
[2023-08-15] MEDS: Mirtazapine 15 MG Tab PO SCH (21:07)
[2023-08-15] MEDS: Acetaminophen 325 MG Tab PO PRN (21:07)
[2023-08-16] MEDS: Albuterol/Ipratropium 3.0-0.5 MG/3 ML Neb Soln NEB SCH ×3 (07:19→20:03)
[2023-08-16] MEDS: Tamsulosin 0.4 MG Cap.ER PO SCH ×2 (08:24→20:04)
[2023-08-16] MEDS: Carvedilol 3.125 MG Tab PO SCH ×2 (08:24→18:04)
[2023-08-16] MEDS: Calcium Citrate/Vitamin D3 315 MG-250 Unit Tab PO SCH ×2 (08:24→20:05)
[2023-08-16] MEDS: Cholecalciferol (Vitamin D3) 25 MCG Tab PO SCH (08:24)
[2023-08-16] MEDS: DULoxetine 20 MG Cap PO SCH (08:24)
[2023-08-16] MEDS: Aspirin 81 MG Tab.EC PO SCH (08:26)
[2023-08-16] MEDS: Digoxin 125 MCG Tab PO SCH (08:26)
[2023-08-16] MEDS: Mirtazapine 15 MG Tab PO SCH (20:05)
[2023-08-16] MEDS: Acetaminophen 325 MG Tab PO PRN (20:06)
[2023-08-17] MEDS: Albuterol/Ipratropium 3.0-0.5 MG/3 ML Neb Soln NEB SCH ×3 (07:07→20:14)
[2023-08-17] MEDS: Calcium Citrate/Vitamin D3 315 MG-250 Unit Tab PO SCH ×2 (08:39→20:11)
[2023-08-17] MEDS: DULoxetine 20 MG Cap PO SCH (08:39)
[2023-08-17] MEDS: Digoxin 125 MCG Tab PO SCH (08:41)
[2023-08-17] MEDS: Tamsulosin 0.4 MG Cap.ER PO SCH ×2 (08:41→20:12)
[2023-08-17] MEDS: Carvedilol 3.125 MG Tab PO SCH ×2 (08:42→18:23)
[2023-08-17] MEDS: Aspirin 81 MG Tab.EC PO SCH (08:42)
[2023-08-17] MEDS: Cholecalciferol (Vitamin D3) 25 MCG Tab PO SCH (08:43)
[2023-08-17] MEDS: Mirtazapine 15 MG Tab PO SCH (20:11)
[2023-08-17] MEDS: Acetaminophen 325 MG Tab PO PRN (20:12)
[2023-08-18] MEDS: Albuterol/Ipratropium 3.0-0.5 MG/3 ML Neb Soln NEB SCH ×3 (06:07→20:29)
[2023-08-18 06:59] LABS: BASOPHILS PERCENT AUTO 0.2 % (0.2-1.2); EOSINOPHILS ABSOLUTE AUTO 0.5 x10^3/uL (0.0-0.5); EOSINOPHILS PERCENT AUTO 4.6 % (0.0-4.0); HEMATOCRIT 32.5 % (40.0-52.0); HEMOGLOBIN 10.8 g/dL (14.0-18.0); IMMATURE GRAN ABSOLUTE AUTO 0.11 x10^3/uL (0.00-0.07); LYMPHOCYTES ABSOLUTE AUTO 1.7 x10^3/uL (1.0-4.8); LYMPHOCYTES PERCENT AUTO 17.8 % (25.0-50.0); MEAN CORPUSCULAR HEMOGLOBIN 29.8 pg (26.0-32.0); MEAN CORPUSCULAR HGB CONC 33.2 g/dL (32.0-36.0); MEAN CORPUSCULAR VOLUME 89.8 fL (78.0-93.0); MONOCYTES ABSOLUTE AUTO 0.6 x10^3/uL (0.0-0.8); MONOCYTES PERCENT AUTO 6.4 % (2.0-11.0); NEUTROPHILS ABSOLUTE AUTO 6.8 x10^3/uL (1.8-7.7); NEUTROPHILS PERCENT AUTO 69.9 % (50.0-80.0); PLATELET COUNT,PLT 257 x10^3/uL (130-400); RED BLOOD CELL COUNT 3.62 x10^6/uL (4.5-6.0); WHITE BLOOD CELL COUNT,WBC 9.7 x10^3/uL (4.0-10.0)
[2023-08-18 07:12] LABS: CALCIUM 8.6 mg/dL (8.5-10.1); CREATININE 0.7 mg/dL (0.70-1.30); EST CRCL DRUG DOSING (CG) 52.43 mL/min; POTASSIUM,K 4.1 mmol/L (3.5-5.1)
[2023-08-18 07:13] LABS: ANION GAP 12.1 mmol/L (5-15)
[2023-08-18] MEDS: Cholecalciferol (Vitamin D3) 25 MCG Tab PO SCH (08:20)
[2023-08-18] MEDS: DULoxetine 20 MG Cap PO SCH (08:21)
[2023-08-18] MEDS: Carvedilol 3.125 MG Tab PO SCH ×2 (08:21→17:47)
[2023-08-18] MEDS: Tamsulosin 0.4 MG Cap.ER PO SCH ×2 (08:21→20:29)
[2023-08-18] MEDS: Digoxin 125 MCG Tab PO SCH (08:22)
[2023-08-18] MEDS: Calcium Citrate/Vitamin D3 315 MG-250 Unit Tab PO SCH ×2 (08:23→20:28)
[2023-08-18] MEDS: Aspirin 81 MG Tab.EC PO SCH ×3 (08:24→20:29)
[2023-08-18] MEDS: Mirtazapine 15 MG Tab PO SCH (20:28)
[2023-08-19 05:29] VITALS: BP 120/62
[2023-08-19] MEDS: Albuterol/Ipratropium 3.0-0.5 MG/3 ML Neb Soln NEB SCH (08:59)
[2023-08-19] MEDS: Tamsulosin 0.4 MG Cap.ER PO SCH (09:00)
[2023-08-19] MEDS: Aspirin 81 MG Tab.EC PO SCH (09:00)
[2023-08-19] MEDS: Calcium Citrate/Vitamin D3 315 MG-250 Unit Tab PO SCH (09:00)
[2023-08-19] MEDS: DULoxetine 20 MG Cap PO SCH (09:01)
[2023-08-19] MEDS: Digoxin 125 MCG Tab PO SCH (09:01)
[2023-08-19] MEDS: Cholecalciferol (Vitamin D3) 25 MCG Tab PO SCH (09:01)
[2023-08-19] MEDS: Carvedilol 3.125 MG Tab PO SCH (09:02)
[2023-08-19 09:03] VITALS: PULSE 81
== END 2023-08-19 12:00 | DRG 560 ==
LOC: EEVIPCON 12:21 → VM.MS 12:21
PROVIDERS: ADMIT Internal Medicine; ATTEND Internal Medicine
DX: Z47.1 Aftercare following joint replacement surgery (principal); E44.1 Mild protein-calorie malnutrition; I50.22 Chronic systolic (congestive) heart failure; I42.9 Cardiomyopathy, unspecified; I48.0 Paroxysmal atrial fibrillation; D64.9 Anemia, unspecified; G30.9 Alzheimer's disease, unspecified; I25.10 Atherosclerotic heart disease of native coronary artery without angina pectoris; Z66 Do not resuscitate; E78.00 Pure hypercholesterolemia, unspecified; J43.1 Panlobular emphysema; F10.20 Alcohol dependence, uncomplicated; H91.90 Unspecified hearing loss, unspecified ear; F17.210 Nicotine dependence, cigarettes, uncomplicated; N40.1 Benign prostatic hyperplasia with lower urinary tract symptoms; Z98.49 Cataract extraction status, unspecified eye; M80.00XD Age-related osteoporosis with current pathological fracture, unspecified site, subsequent encounter for fracture with routine healing; Z87.891 Personal history of nicotine dependence; Z95.5 Presence of coronary angioplasty implant and graft; Z79.899 Other long term (current) drug therapy; Z11.52 Encounter for screening for COVID-19
CPT/HCPCS: 0241U; 36415; 70450; 71046; 80048; 80053; 80076; 81001; 85025; 85027; 94640; 94760; 95851-GO; 97110-GP; 97112-GP; 97116-GP; 97161-GP; 97164-GP; 97166-GO; 97530-GO; 97535-GO; A9270-GY; J1650; J7512; J7620-GY

== ENCOUNTER 2023-11-11 18:03 | Emergency (ER) | payer MEDICARE, BC ==
[2023-11-11 18:13] VITALS: BP 103/52; PULSE 90
== END 2023-11-11 19:30 ==
LOC: VM.ED 18:03
DX: M25.551 Pain in right hip (principal); I11.0 Hypertensive heart disease with heart failure; I50.9 Heart failure, unspecified; I25.2 Old myocardial infarction; I25.10 Atherosclerotic heart disease of native coronary artery without angina pectoris; Z79.82 Long term (current) use of aspirin; Z79.899 Other long term (current) drug therapy; W07.XXXA Fall from chair, initial encounter
CPT/HCPCS: 99285